=== PATIENT | female | born 1995 | race Caucasian/White ===

== ENCOUNTER 2016-04-22 15:02 | Emergency (ER) | payer OTHER ==
[2016-04-22] MEDS ORDERED: KETOROLAC 30 MG/ML VIAL (J1885) As Ordered ONE (16:23)
[2016-04-22] MEDS ORDERED: ONDANSETRON 4MG/2ML VIAL (J2405) As Ordered ONE (16:23)
[2016-04-22 16:37] LABS: BASO % 0.4 % (0.0-1.0); EOS # 0.1 K/mm3 (0.0-0.50); EOS % 1.8 % (0.0-3.0); LARGE UNSTAINED CELL # 0.2 K/mm3 (0.0-0.4); LARGE UNSTAINED CELL % 2.2 % (0.0-4.0); LYMPH # 1.5 K/mm3 (1.5-6.5); LYMPH % 19.8 % (24.0-44.0); MEAN CORPUSCULAR HEMOGLOBIN 29.5 pg (27.0-33.0); MEAN CORPUSCULAR HGB CONC 33.6 g/dl (32.0-36.5); MEAN CORPUSCULAR VOLUME 87.8 fl (80.0-96.0); MONO # 0.5 K/mm3 (0.0-0.8); MONO % 6.2 % (0.0-5.0); NEUTROPHILS # 5.4 K/mm3 (1.8-7.7); NEUTROPHILS % 69.7 % (36.0-66.0); PLATELET COUNT, AUTOMATED 218 k/mm3 (150-450); RED CELL DISTRIBUTION WIDTH 12.8 % (11.5-14.5); WHITE BLOOD COUNT 7.8 K/mm3 (4.0-10.0)
[2016-04-22 16:50] LABS: ALBUMIN/GLOBULIN RATIO 1.05 (1.00-1.93); ALKALINE PHOSPHATASE 82 U/L (45-117); ALT/SGPT 29 U/L (12-78); ANION GAP 9 MEQ/L (8-16); AST/SGOT 15 U/L (15-37); BILIRUBIN,DIRECT 0.2 MG/DL (0.0-0.2); BILIRUBIN,TOTAL 0.5 MG/DL (0.2-1.0); BLOOD UREA NITROGEN 9 MG/DL (7-18); CARBON DIOXIDE LEVEL 27 MEQ/L (21-32); CHLORIDE LEVEL 106 MEQ/L (98-107); CREATININE FOR GFR 0.92 MG/DL (0.55-1.02); GLOMERULAR FILTRATION RATE > 60.0 (>60); GLUCOSE, FASTING 82 MG/DL (70-105); POTASSIUM SERUM 3.6 MEQ/L (3.5-5.1); SODIUM LEVEL 142 MEQ/L (136-145); TOTAL PROTEIN 7.8 GM/DL (6.4-8.2)
[2016-04-22] MEDS ORDERED: MORPHINE 4 MG/ML 1ML SYRINGE As Ordered ONE (17:10)
[2016-04-22] MEDS ORDERED: ISOVUE-370 76% 100ML VIAL (Q9967) As Ordered ONE (17:13)
--- NOTE | 2016-04-22 18:39 | EDDOCDS ---
Physician Documentation [facility] Name: Renuka Bernard Age: 20 yrs Sex: Female : 1995 Arrival Date: 04/22/2016 Time: 15:02 Bed I2 / M2 Private MD: BRE Morton Disposition: 04/22/16 18:24 Discharged to Home/Self Care. Impression: Nausea and vomiting, Abdominal and pelvic pain - RLQ. - Condition is Stable. - Discharge Instructions: Viral Gastroenteritis. - Prescriptions for ZOFRAN ODT 4 mg - dissolve 1 tablet by ORAL route 4 times per day As needed do not chew, do not swallow whole; 10 tablet. - Medication Reconciliation, Work Release Form - 2 day form. - Follow up: Emergency Department; When: As needed. Follow up: BRE Morton; When: Call to arrange an appointment; Reason: Wound/Symptom Recheck, Recheck today's complaints, Worsening of conditions, Continuance of care. - Problem is an ongoing problem. - Symptoms have improved. Historical: - Allergies: No known drug Allergies; - Home Meds: 1. symbicort 2 puffs twice daily 2. BCP 1 tab nightly 3. Prozac 40 mg Oral cap 1 cap once daily - PMHx: Asthma; Anxiety; Depression; - PSHx: none; - Social history: Smoking status: Patient states was never smoker of tobacco. No barriers to communication noted, The patient speaks fluent [place]ankan. - Family history: Not pertinent. - : The pt / caregiver states he / she is not on anticoagulants. Home medication list is obtained from the patient. - Exposure Risk Screening:: None identified. BDR: 04/22 15:14 LMP 04/03/2016 kcs Vital Signs: 15:04 BP 142 / 54; Pulse 85; Resp 18; Temp 98.3; Pulse Ox 99% ; Weight 77.11 kg / 170 lbs; elp Height 5 ft. 5 in. (165.10 cm); Pain 7/10; 17:00 Pain 6/10; mcp 17:45 Pain 3/10; mcp 18:31 BP 113 / 68; Pulse 72; Resp 18; Temp 99.1(T); Pulse Ox 97% on R/A; Pain 2/10; mcp 15:04 Body Mass Index 28.29 (77.11 kg, 165.10 cm) elp MDM: 15:45 Urine Dip ordered. cc10 15:45 UCG by Nursing ordered. cc10 16:11 NS 0.9% 1000 ml IV at bolus once ordered. cc10 16:11 Ondansetron 4 mg IVP once ordered. cc10 16:11 ketorolac 30 mg IVP once ordered. cc10 16:11 IV Saline Lock ordered. cc10 16:11 Undress patient appropriately for examination ordered. cc10 16:13 Basic Metabolic Profile Ordered. EDMS 16:13 CBC with Diff Ordered. EDMS 16:13 Lipase Ordered. EDMS 16:13 Liver Profile Ordered. EDMS 16:13 NOTHING BY MOUTH+DIET ordered. EDMS 17:01 CBC with Diff Reviewed. cc10 17:01 Basic Metabolic Profile Reviewed. cc10 17:01 Lipase Reviewed. cc10 17:01 Liver Profile Reviewed. cc10 17:06 morphine 4 mg IVP once ordered. cc10 17:06 CT ABD & PELVIS: IV Contrast Only Ordered. EDMS Point of Care Testing: Urine : 15:59 hCG Reading: Negative; Control Reading: Positive; kcs Urine Dip: 15:59 pH: 5; ; Specific [place]: 1.020; Ketones: Moderate; Glucose: Negative; Protein: Trace; kcs Leukocytes: Negative; Nitrite: Negative ; Blood: Negative; Bilirubin: Small (+) ; Urobilinogen: Normal Ranges: Administered Medications: 16:28 Drug: NS 0.9% 1000 ml [sodium chloride 0.9 % intravenous solution] Route: IV; Rate: mcp bolus; Site: right antecubital; 18:32 Follow up: IV Status: Infusion discontinued; IV Intake: 700ml [facility] 16:28 Drug: Ondansetron 4 mg [ondansetron HCl 2 mg/mL intravenous solution (2 mL)] Route: mcp IVP; Site: right antecubital; 16:28 Drug: ketorolac 30 mg [ketorolac 30 mg/mL (1 mL) injection solution (1 mL)] Route: IVP; [facility] Site: right antecubital; 17:00 Follow up: Pain 6/10 Adult; Response: Pain is decreased [facility] 17:14 Drug: morphine 4 mg [morphine 4 mg/mL intravenous cartridge (1 mL)] Route: IVP; Site: mk4 right antecubital; 17:30 Follow up: Response: Pain is decreased mk4 17:45 Follow up: Pain 3/10 Adult; Response: Pain is decreased mcp 18:38 Follow up: Response: Pain is decreased mk4 Signatures: Dispatcher [employer] Janessa Haro, KEVIN RN [facility] Anna Driscoll RN RN mk4 Jasvir Caban, JOSIAHC PAMarieC cc10 Georgiana Johnson RN [facility] MTDD
--- NOTE | 2016-04-22 18:39 | EDDOCDS ---
Nurse's Notes [facility] Name: Renuka Bernard Age: 20 yrs Sex: Female : 1995 Arrival Date: 04/22/2016 Time: 15:02 Bed I2 / M2 Private MD: BRE Morton Diagnosis: Nausea and vomiting;Abdominal and pelvic pain-RLQ Presentation: 04/22 15:12 Presenting complaint: Patient states: she woke up yesterday with nausea - later had kcs abdominal pain - still has abdominal pain but has gotten worse in the last 1-2 hours. also vomited X2 today. Adult Sepsis Screening: The patient does not have new or worsening altered mentation. Patient's respiratory rate is less than 22. Systolic blood pressure is greater than 100. Patient has a qSOFA score of 0- Negative Sepsis Screen. Suicide/Homicide risk assessment- the patient denies having any suicidal and/or homicidal ideations and does not present with any other emotional, behavioral or mental health complaints. Status: The patient is a dependent. Transition of care: patient was not received from another setting of care. 15:12 Acuity: PROSPER Level 3 kcs 15:12 Method Of Arrival: Walkin/Carried/Asstd kcs Triage Assessment: 15:14 General: Appears comfortable, well developed, well nourished, well groomed, Behavior is kcs cooperative, pleasant. Pain: Location: abdomen Pain currently is 8 out of 10 on a pain scale. Pt Declines HIV testing. Neurological: Level of Consciousness is awake, alert. Respiratory: Airway is patent Respiratory effort is even, unlabored, Respiratory pattern is regular, symmetrical. Derm: Skin is intact, is healthy with good turgor, Skin is dry, Skin is normal. 18:38 GI: Reports. mk4 JEWEL STRIPPER: 15:14 LMP 04/03/2016 kcs Historical: - Allergies: No known drug Allergies; - Home Meds: 1. symbicort 2 puffs twice daily 2. BCP 1 tab nightly 3. Prozac 40 mg Oral cap 1 cap once daily - PMHx: Asthma; Anxiety; Depression; - PSHx: none; - Social history: Smoking status: Patient states was never smoker of tobacco. No barriers to communication noted, The patient speaks fluent [place]. - Family history: Not pertinent. - : The pt / caregiver states he / she is not on anticoagulants. Home medication list is obtained from the patient. - Exposure Risk Screening:: None identified. Screenin:20 Screening information is obtained from the patient. Fall risk: No risks identified. mcp Assistance ADL's: requires no assistance with activities of daily living. Abuse/DV Screen: The patient / caregiver reports he/she is: not in a situation that causes fear, pain or injury. Nutritional screening: No deficits noted. Advance Directives: There is no active DNR order. home support is adequate. Assessment: 16:20 General: Appears uncomfortable, Behavior is cooperative. Pain: Location: right lower mcp quadrant Pain currently is 7 out of 10 on a pain scale. Neurological: No deficits noted. Respiratory: Airway is patent Respiratory effort is even, unlabored. GI: Abdomen is non- distended Bowel sounds present X 4 quads. Abd is soft X 4 quads. Derm: Skin is pink, warm & dry. 17:00 General: Appears uncomfortable, pt reports an increase in abd pain with nausea provider mk4 aware and orders recvd. 18:16 General: Appears uncomfortable, pt states that he rpain has returned with nauseas, mk4 reported to PA. 18:37 General: Appears uncomfortable, Behavior is cooperative, pleasant, pt states she is mk4 still having some pain but it is better. Vital Signs: 15:04 BP 142 / 54; Pulse 85; Resp 18; Temp 98.3; Pulse Ox 99% ; Weight 77.11 kg; Height 5 ft. elp 5 in. (165.10 cm); Pain 7/10; 17:00 Pain 6/10; mcp 17:45 Pain 3/10; mcp 18:31 BP 113 / 68; Pulse 72; Resp 18; Temp 99.1(T); Pulse Ox 97% on R/A; Pain 2/10; mcp 15:04 Body Mass Index 28.29 (77.11 kg, 165.10 cm) [facility] Vitals: 15:04 Log In Time: April 22, 2016 at 15:02. [facility] ED Course: 15:04 Patient visited by Olivia Bowman PCA. [facility] 15:04 Selene [facility] [place] Private Physician. elp 15:04 Patient moved to Waiting elp 15:05 Patient visited by Patchen, Olivia, HAND ORNAMENT MAKER. elp 15:05 Patient moved to Pre RCE elp 15:13 Triage Initiated kcs 15:26 Patient moved to Triage 3 ct3 15:45 Patient visited by Darling Mckoy RN. ck1 16:07 Jasvir Caban [facility]-C [facility] cc10 16:07 Blair Laguerre MD is Attending Physician. cc10 16:07 Patient visited by Jasvir Caban PA-C. cc10 16:07 Patient visited by Jasvir Caban PA-C. cc10 16:11 Patient moved to I2 / M2 kcs 16:20 Basic Metabolic Profile Sent. mcp 16:20 CBC with Diff Sent. mcp 16:20 Lipase Sent. mcp 16:20 Liver Profile Sent. [facility] 16:21 Patient visited by Georgiana Johnson RN. [facility] 16:21 The patient / caregiver is instructed regarding the plan of care and ED course. Patient mcp has correct armband on for positive identification. Placed in gown. Bed in low position. Call light in reach. 16:21 Inserted saline lock: 20 gauge in right antecubital area and blood collected. The mcp patient tolerated the procedure well. Labs drawn. (by ED staff). Sent per order to lab. 17:00 No procedures done that require assistance. mk4 17:07 Patient visited by Anna Driscoll RN. mk4 17:[address] mk4 17:29 Patient moved to I2 / M2 mk4 17:46 Patient visited by Georgiana Johnson RN. [facility] 18:24 Patient visited by Anna Driscoll RN. [facility] 18:24 Selene [facility] is Referral Physician. cc10 18:32 Discontinued lock intact, bleeding controlled, pressure dressing applied, No mcp redness/swelling at site. 18:34 Patient visited by Georgiana Johnson RN. mcp Administered Medications: 16:28 Drug: NS 0.9% 1000 ml [sodium chloride 0.9 % intravenous solution] Route: IV; Rate: mcp bolus; Site: right antecubital; 18:32 Follow up: IV Status: Infusion discontinued; IV Intake: 700ml [facility] 16:28 Drug: Ondansetron 4 mg [ondansetron HCl 2 mg/mL intravenous solution (2 mL)] Route: mcp IVP; Site: right antecubital; 16:28 Drug: ketorolac 30 mg [ketorolac 30 mg/mL (1 mL) injection solution (1 mL)] Route: IVP; [facility] Site: right antecubital; 17:00 Follow up: Pain 6/10 Adult; Response: Pain is decreased [facility] 17:14 Drug: morphine 4 mg [morphine 4 mg/mL intravenous cartridge (1 mL)] Route: IVP; Site: mk4 right antecubital; 17:30 Follow up: Response: Pain is decreased mk4 17:45 Follow up: Pain 3/10 Adult; Response: Pain is decreased [facility] 18:38 Follow up: Response: Pain is decreased 4 Point of Care Testing: Urine : 15:59 hCG Reading: Negative; Control Reading: Positive; kcs Urine Dip: 15:59 pH: 5; ; Specific [place]: 1.020; Ketones: Moderate; Glucose: Negative; Protein: Trace; kcs Leukocytes: Negative; Nitrite: Negative ; Blood: Negative; Bilirubin: Small (+) ; Urobilinogen: Normal Ranges: Intake: 18:32 IV: 700.00ml; Total: 700.00ml. [facility] Order Results: Lab Order: Basic Metabolic Profile; SPEC'M 04/22/16 16:18 Test: GLUCOSE, FASTING; Value: 82; Range: 70-105; Units: MG/DL; Status: F Test: BLOOD UREA NITROGEN; Value: 9; Range: 7-18; Units: MG/DL; Status: F Test: CREATININE FOR GFR; Value: 0.92; Range: 0.55-1.02; Units: MG/DL; Status: F Test: GLOMERULAR FILTRATION RATE; Value: > 60.0; Range: >60; Status: F Test: SODIUM LEVEL; Value: 142; Range: 136-145; Units: MEQ/L; Status: F Test: POTASSIUM SERUM; Value: 3.6; Range: 3.5-5.1; Units: MEQ/L; Status: F Test: CHLORIDE LEVEL; Value: 106; Range: 98-107; Units: MEQ/L; Status: F Test: CARBON DIOXIDE LEVEL; Value: 27; Range: 21-32; Units: MEQ/L; Status: F Test: ANION GAP; Value: 9; Range: 8-16; Units: MEQ/L; Status: F Test: CALCIUM LEVEL; Value: 9.0; Range: 8.5-10.1; Units: MG/DL; Status: F Test Note: ; Units are mL/min/1.73 m2 Chronic Kidney Disease Staging per NKF: Stage I & II GFR >=60 Normal to Mildly Decreased Stage III GFR 30-59 Moderately Decreased Stage IV GFR 15-29 Severely Decreased Stage V GFR <15 Very Little GFR Left ESRD GFR <15 on TRAINING PROGRAM MANAGER Lab Order: CBC with Diff; SPEC'M 04/22/16 16:18 Test: WHITE BLOOD COUNT; Value: 7.8; Range: 4.0-10.0; Units: K/mm3; Status: F Test: RED BLOOD COUNT; Value: 4.97; Range: 4.00-5.40; Units: M/mm3; Status: F Test: HEMOGLOBIN; Value: 14.7; Range: 12.0-16.0; Units: g/dl; Status: F Test: HEMATOCRIT; Value: 43.7; Range: 36.0-47.0; Units: %; Status: F Test: MEAN CORPUSCULAR VOLUME; Value: 87.8; Range: 80.0-96.0; Units: fl; Status: F Test: MEAN CORPUSCULAR HEMOGLOBIN; Value: 29.5; Range: 27.0-33.0; Units: pg; Status: F Test: MEAN CORPUSCULAR HGB CONC; Value: 33.6; Range: 32.0-36.5; Units: g/dl; Status: F Test: RED CELL DISTRIBUTION WIDTH; Value: 12.8; Range: 11.5-14.5; Units: %; Status: F Test: PLATELET COUNT, AUTOMATED; Value: 218; Range: 150-450; Units: k/mm3; Status: F Test: NEUTROPHILS %; Value: 69.7; Range: 36.0-66.0; Abnormal: Above high normal; Units: %; Status: F Test: LYMPH %; Value: 19.8; Range: 24.0-44.0; Abnormal: Below low normal; Units: %; Status: F Test: MONO %; Value: 6.2; Range: 0.0-5.0; Abnormal: Above high normal; Units: %; Status: F Test: EOS %; Value: 1.8; Range: 0.0-3.0; Units: %; Status: F Test: BASO %; Value: 0.4; Range: 0.0-1.0; Units: %; Status: F Test: LARGE UNSTAINED CELL %; Value: 2.2; Range: 0.0-4.0; Units: %; Status: F Test: NEUTROPHILS #; Value: 5.4; Range: 1.8-7.7; Units: K/mm3; Status: F Test: LYMPH #; Value: 1.5; Range: 1.5-6.5; Units: K/mm3; Status: F Test: MONO #; Value: 0.5; Range: 0.0-0.8; Units: K/mm3; Status: F Test: EOS #; Value: 0.1; Range: 0.0-0.50; Units: K/mm3; Status: F Test: BASO #; Value: 0.0; Range: 0.0-0.2; Units: K/mm3; Status: F Test: LARGE UNSTAINED CELL #; Value: 0.2; Range: 0.0-0.4; Units: K/mm3; Status: F Lab Order: Lipase; [facility] 04/22/16 16:18 Test: LIPASE; Value: 145; Range: 73-393; Units: U/L; Status: F Lab Order: Liver Profile; [facility] 04/22/16 16:18 Test: AST/SGOT; Value: 15; Range: 15-37; Units: U/L; Status: F Test: ALT/SGPT; Value: 29; Range: 12-78; Units: U/L; Status: F Test: ALKALINE PHOSPHATASE; Value: 82; Range: 45-117; Units: U/L; Status: F Test: BILIRUBIN,TOTAL; Value: 0.5; Range: 0.2-1.0; Units: MG/DL; Status: F Test: BILIRUBIN,DIRECT; Value: 0.2; Range: 0.0-0.2; Units: MG/DL; Status: F Test: TOTAL PROTEIN; Value: 7.8; Range: 6.4-8.2; Units: GM/DL; Status: F Test: ALBUMIN; Value: 4.0; Range: 3.2-5.2; Units: GM/DL; Status: F Test: ALBUMIN/GLOBULIN RATIO; Value: 1.05; Range: 1.00-1.93; Status: F Outcome: 18:24 Discharge ordered by Provider. [facility] 18:37 Discharge Assessment: Patient awake, alert and oriented x 3. No cognitive and/or mk4 functional deficits noted. Patient verbalized understanding of disposition instructions. Patient awake and alert. Discharge Assessment: patient administered narcotics - no. The following High Risk Discharge criteria are identified: None. Condition: good Condition: stable. No special radiology studies were completed. Property sent home with patient. 18:38 Patient left the ED. 4 Signatures: Janessa Sosa, RN RN Georgiana Snowden RN Darling Gill mcpRN RN ck1 Jane Cruz, HAND ORNAMENT MAKER HAND ORNAMENT MAKER ct3 Olivia Bowman, HAND ORNAMENT MAKER HAND ORNAMENT MAKER deannp Anna Driscoll RN RN mk4 Jasvir Caban, PA-C PA-C cc10 CARMELLA
--- NOTE | 2016-04-22 18:49 | REP ---
CT ABDOMEN AND PELVIS WITH CONTRAST: 04/22/2016: No comparison study. Technique: Bolus of 100 mL of Isovue-370 with scanning through the abdomen pelvis and both coronal and sagittal reconstructions provided. No oral contrast given. Findings: CT abdomen and lung bases clear. Heart is not enlarged and no pericardial thickening or effusion. No hiatal hernia. The liver, spleen, gallbladder, adrenal glands, pancreas, bilateral kidneys, stomach and the great vessels were unremarkable. There is no periaortic other retroperitoneal pathologic sized lymphadenopathy. Colon in the abdominal cavity shows stool and gas in the right and transverse colon to the midline. Transverse colon, splenic flexure and left colon are collapsed. There is questionable wall thickening but no pericolonic edema or infiltration of the fat around the colon. It showed no bony abnormality. There is a disc bulge at the L5-S1 level not causing gross evidence of spinal stenosis. The distal left colon and sigmoid are collapsed without inflammatory change to suggest definite colitis. There is stool in the rectal vault without wall thickening. Appendix is seen without inflammatory change or stone. No periappendiceal fluid or edema. There is no appendicolith. The appendix is retrocecal extending upward to near the level of the iliac crest behind the cecum. Uterus is anteverted tilted towards the right. The bilateral ovaries were intact. There is no pelvic free fluid or adnexal mass. No ventral or inguinal hernia nor inguinal adenopathy. Impression: 1. Appendix is retrocecal but there is no CT evidence for appendicitis, appendicolith, or pericecal inflammatory change. 2. The distal transverse colon, splenic flexure, and left colon to the sigmoid show collapse of the colon and questionable wall thickening but no pericolonic inflammatory change that would clearly define colitis. No fluid in the peroneal gutters and no free air or generalized ascites. Stool in the rectosigmoid vault as well. Small bowel loops intact. 3. Solid organs in the upper abdomen as well as the stomach and gallbladder were unremarkable. No ventral or inguinal hernia. Signed by Aleksandar Azul MD 04/22/2016 07:57 P
--- NOTE | 2016-04-24 19:39 | EDDOCDS ---
Nurse's Notes [facility] Name: Renuka Bernard Age: 20 yrs Sex: Female : 1995 Arrival Date: 04/22/2016 Time: 15:02 Bed I2 / M2 Private MD: BRE Morton Diagnosis: Nausea and vomiting;Abdominal and pelvic pain-RLQ Presentation: 04/22 15:12 Presenting complaint: Patient states: she woke up yesterday with nausea - later had kcs abdominal pain - still has abdominal pain but has gotten worse in the last 1-2 hours. also vomited X2 today. Adult Sepsis Screening: The patient does not have new or worsening altered mentation. Patient's respiratory rate is less than 22. Systolic blood pressure is greater than 100. Patient has a qSOFA score of 0- Negative Sepsis Screen. Suicide/Homicide risk assessment- the patient denies having any suicidal and/or homicidal ideations and does not present with any other emotional, behavioral or mental health complaints. Status: The patient is a dependent. Transition of care: patient was not received from another setting of care. 15:12 Acuity: PROSPER Level 3 kcs 15:12 Method Of Arrival: Walkin/Carried/Asstd kcs Triage Assessment: 15:14 General: Appears comfortable, well developed, well nourished, well groomed, Behavior is kcs cooperative, pleasant. Pain: Location: abdomen Pain currently is 8 out of 10 on a pain scale. Pt Declines HIV testing. Neurological: Level of Consciousness is awake, alert. Respiratory: Airway is patent Respiratory effort is even, unlabored, Respiratory pattern is regular, symmetrical. Derm: Skin is intact, is healthy with good turgor, Skin is dry, Skin is normal. 18:38 GI: Reports. 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 symbicort 2 puffs twice daily 2. BCP 1 tab nightly 3. Prozac 40 mg Oral cap 1 cap once daily - PMHx: Asthma; Anxiety; Depression; - PSHx: none; - Social history: Smoking status: Patient states was never smoker of tobacco. No barriers to communication noted, The patient speaks fluent Sammarinese. - Family history: Not pertinent. - : The pt / caregiver states he / she is not on anticoagulants. Home medication list is obtained from the patient. - Exposure Risk Screening:: None identified. Screenin:20 Screening information is obtained from the patient. Fall risk: No risks identified. mcp Assistance ADL's: requires no assistance with activities of daily living. Abuse/DV Screen: The patient / caregiver reports he/she is: not in a situation that causes fear, pain or injury. Nutritional screening: No deficits noted. Advance Directives: There is no active DNR order. home support is adequate. Assessment: 16:20 General: Appears uncomfortable, Behavior is cooperative. Pain: Location: right lower mcp quadrant Pain currently is 7 out of 10 on a pain scale. Neurological: No deficits noted. Respiratory: Airway is patent Respiratory effort is even, unlabored. GI: Abdomen is non- distended Bowel sounds present X 4 quads. Abd is soft X 4 quads. Derm: Skin is pink, warm & dry. 17:00 General: Appears uncomfortable, pt reports an increase in abd pain with nausea provider mk4 aware and orders recvd. 18:16 General: Appears uncomfortable, pt states that he rpain has returned with nauseas, mk4 reported to PA. 18:37 General: Appears uncomfortable, Behavior is cooperative, pleasant, pt states she is mk4 still having some pain but it is better. Vital Signs: 15:04 BP 142 / 54; Pulse 85; Resp 18; Temp 98.3; Pulse Ox 99% ; Weight 77.11 kg; Height 5 ft. elp 5 in. (165.10 cm); Pain 7/10; 17:00 Pain 6/10; mcp 17:45 Pain 3/10; mcp 18:31 BP 113 / 68; Pulse 72; Resp 18; Temp 99.1(T); Pulse Ox 97% on R/A; Pain 2/10; mcp 15:04 Body Mass Index 28.29 (77.11 kg, 165.10 cm) [facility] Vitals: 15:04 Log In Time: April 22, 2016 at 15:02. [facility] ED Course: 15:04 Patient visited by Olivia Bowman PCA. [facility] 15:04 Selene [facility] is Private Physician. elp 15:04 Patient moved to Waiting elp 15:05 Patient visited by Patchen, Olivia, INSTRUCTOR TAP DANCING. elp 15:05 Patient moved to Pre RCE elp 15:13 Triage Initiated kcs 15:26 Patient moved to Triage 3 ct3 15:45 Patient visited by Darling Mckoy,KEVIN. ck1 16:07 [facility] cc10 16:07 Blair Laguerre MD is Attending Physician. cc10 16:07 Patient visited by Jasvir Caban PA-C. cc10 16:07 Patient visited by Jasvir Caban PA-C. cc10 16:11 Patient moved to I2 / M2 kcs 16:20 Basic Metabolic Profile Sent. mcp 16:20 CBC with Diff Sent. mcp 16:20 Lipase Sent. mcp 16:20 Liver Profile Sent. [facility] 16:21 Patient visited by Georgiana Johnson RN. [facility] 16:21 The patient / caregiver is instructed regarding the plan of care and ED course. Patient mcp has correct armband on for positive identification. Placed in gown. Bed in low position. Call light in reach. 16:21 Inserted saline lock: 20 gauge in right antecubital area and blood collected. The mcp patient tolerated the procedure well. Labs drawn. (by ED staff). Sent per order to lab. 17:00 No procedures done that require assistance. mk4 17:07 Patient visited by Anna Driscoll RN. mk4 17:[address] mk4 17:29 Patient moved to I2 / M2 mk4 17:46 Patient visited by Georgiana Johnson RN. [facility] 18:24 Patient visited by Anna Driscoll RN. mk4 18:24 Selene [facility] is Referral Physician. cc10 18:32 Discontinued lock intact, bleeding controlled, pressure dressing applied, No mcp redness/swelling at site. 18:34 Patient visited by Georgiana Johnson RN. [facility] 19:18 CT ABD & PELVIS: IV Contrast Only Returned. EDMS 19:27 [facility] Payment Agreement was scanned into [employer] and attached to record. gjb 04/23 13:44 T-Sheet-- Draft Copy was scanned into [employer] and attached to record. gb Administered Medications: 04/22 16:28 Drug: NS 0.9% 1000 ml [sodium chloride 0.9 % intravenous solution] Route: IV; Rate: mcp bolus; Site: right antecubital; 18:32 Follow up: IV Status: Infusion discontinued; IV Intake: 700ml [facility] 16:28 Drug: Ondansetron 4 mg [ondansetron HCl 2 mg/mL intravenous solution (2 mL)] Route: mcp IVP; Site: right antecubital; 16:28 Drug: ketorolac 30 mg [ketorolac 30 mg/mL (1 mL) injection solution (1 mL)] Route: IVP; [facility] Site: right antecubital; 17:00 Follow up: Pain 6/10 Adult; Response: Pain is decreased [facility] 17:14 Drug: morphine 4 mg [morphine 4 mg/mL intravenous cartridge (1 mL)] Route: IVP; Site: mk4 right antecubital; 17:30 Follow up: Response: Pain is decreased 4 17:45 Follow up: Pain 3/10 Adult; Response: Pain is decreased [facility] 18:38 Follow up: Response: Pain is decreased 4 Point of Care Testing: Urine : 15:59 hCG Reading: Negative; Control Reading: Positive; kcs Urine Dip: 15:59 pH: 5; ; Specific [place]: 1.020; Ketones: Moderate; Glucose: Negative; Protein: Trace; kcs Leukocytes: Negative; Nitrite: Negative ; Blood: Negative; Bilirubin: Small (+) ; Urobilinogen: Normal Ranges: Intake: 18:32 IV: 700.00ml; Total: 700.00ml. [facility] Order Results: Lab Order: Basic Metabolic Profile; SPEC'M 04/22/16 16:18 Test: GLUCOSE, FASTING; Value: 82; Range: 70-105; Units: MG/DL; Status: F Test: BLOOD UREA NITROGEN; Value: 9; Range: 7-18; Units: MG/DL; Status: F Test: CREATININE FOR GFR; Value: 0.92; Range: 0.55-1.02; Units: MG/DL; Status: F Test: GLOMERULAR FILTRATION RATE; Value: > 60.0; Range: >60; Status: F Test: SODIUM LEVEL; Value: 142; Range: 136-145; Units: MEQ/L; Status: F Test: POTASSIUM SERUM; Value: 3.6; Range: 3.5-5.1; Units: MEQ/L; Status: F Test: CHLORIDE LEVEL; Value: 106; Range: 98-107; Units: MEQ/L; Status: F Test: CARBON DIOXIDE LEVEL; Value: 27; Range: 21-32; Units: MEQ/L; Status: F Test: ANION GAP; Value: 9; Range: 8-16; Units: MEQ/L; Status: F Test: CALCIUM LEVEL; Value: 9.0; Range: 8.5-10.1; Units: MG/DL; Status: F Test Note: ; Units are mL/min/1.73 m2 Chronic Kidney Disease Staging per NKF: Stage I & II GFR >=60 Normal to Mildly Decreased Stage III GFR 30-59 Moderately Decreased Stage IV GFR 15-29 Severely Decreased Stage V GFR <15 Very Little GFR Left ESRD GFR <15 on B[facility]ING MOLDER Lab Order: CBC with Diff; SPEC'M 04/22/16 16:18 Test: WHITE BLOOD COUNT; Value: 7.8; Range: 4.0-10.0; Units: K/mm3; Status: F Test: RED BLOOD COUNT; Value: 4.97; Range: 4.00-5.40; Units: M/mm3; Status: F Test: HEMOGLOBIN; Value: 14.7; Range: 12.0-16.0; Units: g/dl; Status: F Test: HEMATOCRIT; Value: 43.7; Range: 36.0-47.0; Units: %; Status: F Test: MEAN CORPUSCULAR VOLUME; Value: 87.8; Range: 80.0-96.0; Units: fl; Status: F Test: MEAN CORPUSCULAR HEMOGLOBIN; Value: 29.5; Range: 27.0-33.0; Units: pg; Status: F Test: MEAN CORPUSCULAR HGB CONC; Value: 33.6; Range: 32.0-36.5; Units: g/dl; Status: F Test: RED CELL DISTRIBUTION WIDTH; Value: 12.8; Range: 11.5-14.5; Units: %; Status: F Test: PLATELET COUNT, AUTOMATED; Value: 218; Range: 150-450; Units: k/mm3; Status: F Test: NEUTROPHILS %; Value: 69.7; Range: 36.0-66.0; Abnormal: Above high normal; Units: %; Status: F Test: LYMPH %; Value: 19.8; Range: 24.0-44.0; Abnormal: Below low normal; Units: %; Status: F Test: MONO %; Value: 6.2; Range: 0.0-5.0; Abnormal: Above high normal; Units: %; Status: F Test: EOS %; Value: 1.8; Range: 0.0-3.0; Units: %; Status: F Test: BASO %; Value: 0.4; Range: 0.0-1.0; Units: %; Status: F Test: LARGE UNSTAINED CELL %; Value: 2.2; Range: 0.0-4.0; Units: %; Status: F Test: NEUTROPHILS #; Value: 5.4; Range: 1.8-7.7; Units: K/mm3; Status: F Test: LYMPH #; Value: 1.5; Range: 1.5-6.5; Units: K/mm3; Status: F Test: MONO #; Value: 0.5; Range: 0.0-0.8; Units: K/mm3; Status: F Test: EOS #; Value: 0.1; Range: 0.0-0.50; Units: K/mm3; Status: F Test: BASO #; Value: 0.0; Range: 0.0-0.2; Units: K/mm3; Status: F Test: LARGE UNSTAINED CELL #; Value: 0.2; Range: 0.0-0.4; Units: K/mm3; Status: F Lab Order: Lipase; [facility] 04/22/16 16:18 Test: LIPASE; Value: 145; Range: 73-393; Units: U/L; Status: F Lab Order: Liver Profile; [facility] 04/22/16 16:18 Test: AST/SGOT; Value: 15; Range: 15-37; Units: U/L; Status: F Test: ALT/SGPT; Value: 29; Range: 12-78; Units: U/L; Status: F Test: ALKALINE PHOSPHATASE; Value: 82; Range: 45-117; Units: U/L; Status: F Test: BILIRUBIN,TOTAL; Value: 0.5; Range: 0.2-1.0; Units: MG/DL; Status: F Test: BILIRUBIN,DIRECT; Value: 0.2; Range: 0.0-0.2; Units: MG/DL; Status: F Test: TOTAL PROTEIN; Value: 7.8; Range: 6.4-8.2; Units: GM/DL; Status: F Test: ALBUMIN; Value: 4.0; Range: 3.2-5.2; Units: GM/DL; Status: F Test: ALBUMIN/GLOBULIN RATIO; Value: 1.05; Range: 1.00-1.93; Status: F Radiology Order: CT ABD & PELVIS: IV Contrast Only Test: CT ABD & PELVIS: IV Contrast Only REASON FOR EXAMINATION: Appendicitis; CT ABDOMEN AND PELVIS WITH CONTRAST: 04/22/2016:; ; No comparison study.; ; Technique: Bolus of 100 mL of Isovue-370 with scanning through the abdomen; pelvis and both coronal and sagittal reconstructions provided. No oral contrast; given.; ; Findings: CT abdomen and lung bases clear. Heart is not enlarged and no; pericardial thickening or effusion. No hiatal hernia. The liver, spleen,; gallbladder, adrenal glands, pancreas, bilateral kidneys, stomach and the great; vessels were unremarkable. There is no periaortic other retroperitoneal; pathologic sized lymphadenopathy. Colon in the abdominal cavity shows stool and; gas in the right and transverse colon to the midline. Transverse colon, splenic; flexure and left colon are collapsed. There is questionable wall thickening but; no pericolonic edema or infiltration of the fat around the colon. It showed no; bony abnormality. There is a disc bulge at the L5-S1 level not causing gross; evidence of spinal stenosis. The distal left colon and sigmoid are collapsed; without inflammatory change to suggest definite colitis. There is stool in the; rectal vault without wall thickening. Appendix is seen without inflammatory; change or stone. No periappendiceal fluid or edema. There is no appendicolith.; The appendix is retrocecal extending upward to near the level of the iliac crest; behind the cecum.; ; Uterus is anteverted tilted towards the right. The bilateral ovaries were; intact. There is no pelvic free fluid or adnexal mass.; ; No ventral or inguinal hernia nor inguinal adenopathy.; ; Impression:; ; 1. Appendix is retrocecal but there is no CT evidence for appendicitis,; appendicolith, or pericecal inflammatory change.; ; 2. The distal transverse colon, splenic flexure, and left colon to the sigmoid; show collapse of the colon and questionable wall thickening but no pericolonic; inflammatory change that would clearly define colitis. No fluid in the peroneal; gutters and no free air or generalized ascites. Stool in the rectosigmoid vault; as well. Small bowel loops intact.; ; 3. Solid organs in the upper abdomen as well as the stomach and gallbladder were; unremarkable. No ventral or inguinal hernia.; ; ; Signed by; Aleksandar Azul MD 04/22/2016 07:57 P; Outcome: 18:24 Discharge ordered by Provider. cc10 18:37 Discharge Assessment: Patient awake, alert and oriented x 3. No cognitive and/or mk4 functional deficits noted. Patient verbalized understanding of disposition instructions. Patient awake and alert. Discharge Assessment: patient administered narcotics - no. The following High Risk Discharge criteria are identified: None. Condition: good Condition: stable. No special radiology studies were completed. Property sent home with patient. 18:38 Patient left the ED. mk4 Signatures: Dispatcher [employer] EDMS Janessa Sosa RN RN Georgiana Snowden RN RN mcp Barnhardt, Gloria, Reg Reg Darling HollinsRN RN ck1 Jane Cruz, INSTRUCTOR TAP DANCING INSTRUCTOR TAP DANCING ct3 Olivia Bowman, INSTRUCTOR TAP DANCING INSTRUCTOR TAP DANCING elp Anna Driscoll RN RN mk4 Jasvir Caban, PA-C PA-C cc10 Marga Muir Chart Complete MTDD
--- NOTE | 2016-04-24 19:39 | EDDOCDS ---
Physician Documentation [facility] Name: Renuka Bernard Age: 20 yrs Sex: Female : 1995 Arrival Date: 04/22/2016 Time: 15:02 Bed I2 / M2 Private MD: BRE Morton Disposition: 04/22/16 18:24 Discharged to Home/Self Care. Impression: Nausea and vomiting, Abdominal and pelvic pain - RLQ. - Condition is Stable. - Discharge Instructions: Viral Gastroenteritis. - Prescriptions for ZOFRAN ODT 4 mg - dissolve 1 tablet by ORAL route 4 times per day As needed do not chew, do not swallow whole; 10 tablet. - Medication Reconciliation, Work Release Form - 2 day form. - Follow up: Emergency Department; When: As needed. Follow up: BRE Morton; When: Call to arrange an appointment; Reason: Wound/Symptom Recheck, Recheck today's complaints, Worsening of conditions, Continuance of care. - Problem is an ongoing problem. - Symptoms have improved. Historical: - Allergies: No known drug Allergies; - Home Meds: 1. symbicort 2 puffs twice daily 2. BCP 1 tab nightly 3. Prozac 40 mg Oral cap 1 cap once daily - PMHx: Asthma; Anxiety; Depression; - PSHx: none; - Social history: Smoking status: Patient states was never smoker of tobacco. No barriers to communication noted, The patient speaks fluent [place]. - Family history: Not pertinent. - : The pt / caregiver states he / she is not on anticoagulants. Home medication list is obtained from the patient. - Exposure Risk Screening:: None identified. 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 5 in. (165.10 cm); Pain 7/10; 17:00 Pain 6/10; mcp 17:45 Pain 3/10; mcp 18:31 BP 113 / 68; Pulse 72; Resp 18; Temp 99.1(T); Pulse Ox 97% on R/A; Pain 2/10; mcp 15:04 Body Mass Index 28.29 (77.11 kg, 165.10 cm) elp MDM: 15:45 Urine Dip ordered. cc10 15:45 UCG by Nursing ordered. cc10 16:11 NS 0.9% 1000 ml IV at bolus once ordered. cc10 16:11 Ondansetron 4 mg IVP once ordered. cc10 16:11 ketorolac 30 mg IVP once ordered. cc10 16:11 IV Saline Lock ordered. cc10 16:11 Undress patient appropriately for examination ordered. cc10 16:13 Basic Metabolic Profile Ordered. EDMS 16:13 CBC with Diff Ordered. EDMS 16:13 Lipase Ordered. EDMS 16:13 Liver Profile Ordered. EDMS 16:13 NOTHING BY MOUTH+DIET ordered. EDMS 17:01 CBC with Diff Reviewed. cc10 17:01 Basic Metabolic Profile Reviewed. cc10 17:01 Lipase Reviewed. cc10 17:01 Liver Profile Reviewed. cc10 17:06 morphine 4 mg IVP once ordered. cc10 17:06 CT ABD & PELVIS: IV Contrast Only Ordered. [facility] 19:27 [facility] Payment Agreement was scanned into [employer] and attached to record. [facility] 19:27 Financial registration complete. [facility] 04/23 13:44 T-Sheet-- Draft Copy was scanned into [employer] and attached to record. Point of Care Testing: Urine : 04/22 15:59 hCG Reading: Negative; Control Reading: Positive; kcs Urine Dip: 15:59 pH: 5; ; Specific [place]: 1.020; Ketones: Moderate; Glucose: Negative; Protein: Trace; kcs Leukocytes: Negative; Nitrite: Negative ; Blood: Negative; Bilirubin: Small (+) ; Urobilinogen: Normal Ranges: Administered Medications: 16:28 Drug: NS 0.9% 1000 ml [sodium chloride 0.9 % intravenous solution] Route: IV; Rate: mcp bolus; Site: right antecubital; 18:32 Follow up: IV Status: Infusion discontinued; IV Intake: 700ml mcp 16:28 Drug: Ondansetron 4 mg [ondansetron HCl 2 mg/mL intravenous solution (2 mL)] Route: mcp IVP; Site: right antecubital; 16:28 Drug: ketorolac 30 mg [ketorolac 30 mg/mL (1 mL) injection solution (1 mL)] Route: IVP; mcp Site: right antecubital; 17:00 Follow up: Pain 6/10 Adult; Response: Pain is decreased mcp 17:14 Drug: morphine 4 mg [morphine 4 mg/mL intravenous cartridge (1 mL)] Route: IVP; Site: mk4 right antecubital; 17:30 Follow up: Response: Pain is decreased mk4 17:45 Follow up: Pain 3/10 Adult; Response: Pain is decreased mcp 18:38 Follow up: Response: Pain is decreased mk4 Signatures: Dispatcher [employer] EDJanessa Lees RN RN Candy Hope, Reg Reg gb Anna Driscoll RN RN mk4 Jasvir Caban PA-C PA-C cc10 Marga Muir Mary RN [facility] The chart was reviewed and I authenticate all verbal orders and agree with the evaluation and treatment provided.Attachments: 19:27 [facility] Payment Agreement gjb 04/23 13:44 T-Sheet-- Draft Copy Chart Complete MTDD
--- NOTE | 2016-04-24 19:39 | EDDOCDS ---
Physician Documentation [facility] Name: Renuka Bernard Age: 20 yrs Sex: Female : 1995 Arrival Date: 04/22/2016 Time: 15:02 Bed I2 / M2 Private MD: BRE Morton Disposition: 04/22/16 18:24 Discharged to Home/Self Care. Impression: Nausea and vomiting, Abdominal and pelvic pain - RLQ. - Condition is Stable. - Discharge Instructions: Viral Gastroenteritis. - Prescriptions for ZOFRAN ODT 4 mg - dissolve 1 tablet by ORAL route 4 times per day As needed do not chew, do not swallow whole; 10 tablet. - Medication Reconciliation, Work Release Form - 2 day form. - Follow up: Emergency Department; When: As needed. Follow up: BRE Morton; When: Call to arrange an appointment; Reason: Wound/Symptom Recheck, Recheck today's complaints, Worsening of conditions, Continuance of care. - Problem is an ongoing problem. - Symptoms have improved. Historical: - Allergies: No known drug Allergies; - Home Meds: 1. symbicort 2 puffs twice daily 2. BCP 1 tab nightly 3. Prozac 40 mg Oral cap 1 cap once daily - PMHx: Asthma; Anxiety; Depression; - PSHx: none; - Social history: Smoking status: Patient states was never smoker of tobacco. No barriers to communication noted, The patient speaks fluent [place]. - Family history: Not pertinent. - : The pt / caregiver states he / she is not on anticoagulants. Home medication list is obtained from the patient. - Exposure Risk Screening:: None identified. 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 5 in. (165.10 cm); Pain 7/10; 17:00 Pain 6/10; mcp 17:45 Pain 3/10; mcp 18:31 BP 113 / 68; Pulse 72; Resp 18; Temp 99.1(T); Pulse Ox 97% on R/A; Pain 2/10; mcp 15:04 Body Mass Index 28.29 (77.11 kg, 165.10 cm) elp MDM: 15:45 Urine Dip ordered. cc10 15:45 UCG by Nursing ordered. cc10 16:11 NS 0.9% 1000 ml IV at bolus once ordered. cc10 16:11 Ondansetron 4 mg IVP once ordered. cc10 16:11 ketorolac 30 mg IVP once ordered. cc10 16:11 IV Saline Lock ordered. cc10 16:11 Undress patient appropriately for examination ordered. cc10 16:13 Basic Metabolic Profile Ordered. EDMS 16:13 CBC with Diff Ordered. EDMS 16:13 Lipase Ordered. EDMS 16:13 Liver Profile Ordered. EDMS 16:13 NOTHING BY MOUTH+DIET ordered. EDMS 17:01 CBC with Diff Reviewed. cc10 17:01 Basic Metabolic Profile Reviewed. cc10 17:01 Lipase Reviewed. cc10 17:01 Liver Profile Reviewed. cc10 17:06 morphine 4 mg IVP once ordered. cc10 17:06 CT ABD & PELVIS: IV Contrast Only Ordered. [facility] 19:27 [facility] Payment Agreement was scanned into [employer] and attached to record. [facility] 19:27 Financial registration complete. [facility] 04/23 13:44 T-Sheet-- Draft Copy was scanned into [employer] and attached to record. Point of Care Testing: Urine : 04/22 15:59 hCG Reading: Negative; Control Reading: Positive; kcs Urine Dip: 15:59 pH: 5; ; Specific [place]: 1.020; Ketones: Moderate; Glucose: Negative; Protein: Trace; kcs Leukocytes: Negative; Nitrite: Negative ; Blood: Negative; Bilirubin: Small (+) ; Urobilinogen: Normal Ranges: Administered Medications: 16:28 Drug: NS 0.9% 1000 ml [sodium chloride 0.9 % intravenous solution] Route: IV; Rate: mcp bolus; Site: right antecubital; 18:32 Follow up: IV Status: Infusion discontinued; IV Intake: 700ml mcp 16:28 Drug: Ondansetron 4 mg [ondansetron HCl 2 mg/mL intravenous solution (2 mL)] Route: mcp IVP; Site: right antecubital; 16:28 Drug: ketorolac 30 mg [ketorolac 30 mg/mL (1 mL) injection solution (1 mL)] Route: IVP; mcp Site: right antecubital; 17:00 Follow up: Pain 6/10 Adult; Response: Pain is decreased mcp 17:14 Drug: morphine 4 mg [morphine 4 mg/mL intravenous cartridge (1 mL)] Route: IVP; Site: mk4 right antecubital; 17:30 Follow up: Response: Pain is decreased mk4 17:45 Follow up: Pain 3/10 Adult; Response: Pain is decreased mcp 18:38 Follow up: Response: Pain is decreased mk4 Signatures: Dispatcher [employer] EDJanessa Lees RN RN Candy Hope, Reg Reg gb Anna Driscoll RN RN mk4 Jasvir Caban PA-C PA-C cc10 Marga Muir Mary RN [facility] The chart was reviewed and I authenticate all verbal orders and agree with the evaluation and treatment provided.Attachments: 19:27 [facility] Payment Agreement gjb 04/23 13:44 T-Sheet-- Draft Copy Chart Complete MTDD
== END 2016-04-22 18:38 | disposition home or self-care (01) ==
LOC: M ED 15:02
DX: R11.2 Nausea with vomiting, unspecified (principal); R10.31 Right lower quadrant pain; J45.909 Unspecified asthma, uncomplicated; F41.9 Anxiety disorder, unspecified; F32.9 Major depressive disorder, single episode, unspecified; Z79.899 Other long term (current) drug therapy; Z79.3 Long term (current) use of hormonal contraceptives; Z79.51 Long term (current) use of inhaled steroids
CPT/HCPCS: 36415; 74177; 80048; 80076; 81025; 83690; 85025; 96361; 96374; 96375; 99284; J1885; J2405; Q9967

== ENCOUNTER 2016-04-23 10:10 | Emergency (ER) | payer OTHER ==
[2016-04-23] MEDS ORDERED: METOCLOPRAMIDE INJ 10MG/2ML VIAL (J2765) As Ordered ONE (11:56)
[2016-04-23] MEDS ORDERED: MORPHINE 2 MG/ML 1ML SYRINGE As Ordered ONE (11:56)
[2016-04-23 12:11] LABS: BASO % 0.4 % (0.0-1.0); EOS # 0.1 K/mm3 (0.0-0.50); EOS % 2.7 % (0.0-3.0); LARGE UNSTAINED CELL # 0.1 K/mm3 (0.0-0.4); LARGE UNSTAINED CELL % 2.2 % (0.0-4.0); LYMPH # 1.3 K/mm3 (1.5-6.5); LYMPH % 25.9 % (24.0-44.0); MEAN CORPUSCULAR HEMOGLOBIN 29.5 pg (27.0-33.0); MEAN CORPUSCULAR HGB CONC 33.4 g/dl (32.0-36.5); MEAN CORPUSCULAR VOLUME 88.3 fl (80.0-96.0); MONO # 0.4 K/mm3 (0.0-0.8); MONO % 7.2 % (0.0-5.0); NEUTROPHILS # 3.2 K/mm3 (1.8-7.7); NEUTROPHILS % 61.6 % (36.0-66.0); PLATELET COUNT, AUTOMATED 167 k/mm3 (150-450); RED CELL DISTRIBUTION WIDTH 12.9 % (11.5-14.5); WHITE BLOOD COUNT 5.2 K/mm3 (4.0-10.0)
[2016-04-23 12:41] LABS: ALBUMIN 3.4 GM/DL (3.2-5.2); ALKALINE PHOSPHATASE 70 U/L (45-117); ALT/SGPT 23 U/L (12-78); AMYLASE 50 U/L (25-115); ANION GAP 6 MEQ/L (8-16); AST/SGOT 14 U/L (15-37); BILIRUBIN,DIRECT < 0.1 MG/DL (0.0-0.2); BILIRUBIN,TOTAL 0.4 MG/DL (0.2-1.0); BLOOD UREA NITROGEN 9 MG/DL (7-18); CALCIUM LEVEL 8.9 MG/DL (8.5-10.1); CARBON DIOXIDE LEVEL 27 MEQ/L (21-32); CHLORIDE LEVEL 109 MEQ/L (98-107); CREATININE FOR GFR 0.77 MG/DL (0.55-1.02); GLOMERULAR FILTRATION RATE > 60.0 (>60); GLUCOSE, FASTING 93 MG/DL (70-105); POTASSIUM SERUM 3.6 MEQ/L (3.5-5.1); SODIUM LEVEL 142 MEQ/L (136-145); TOTAL PROTEIN 6.8 GM/DL (6.4-8.2)
[2016-04-23 13:17] LABS: CONTROL LINE UCG INT CTR LINE PRESENT
[2016-04-23] MEDS ORDERED: KETOROLAC 30 MG/ML VIAL (J1885) As Ordered ONE (13:24)
--- NOTE | 2016-04-23 13:51 | REP ---
Pelvic ultrasound with transabdominal and Doppler ultrasound assessment: The uterus is anteverted and anteflexed and normal size measuring 7.4 x 2.8 x 3.7 cm. The endometrium is not thickened measuring up to 3 mm. The ovaries are normal size. Right ovary measures 3.2 x 2.0 x 1.9 cm. Left ovary measures 2.7 by 2.0 x 1.8 cm. There is no dominant mass or cyst seen on the right on the left ovary. There is vascular flow in both ovaries. The Doppler resistive index of the intraparenchymal arteries on the right is 0.47 on the left 0.56. There is no free fluid. Impression: No evidence of torsion. No dominant ovarian mass or cyst. No free fluid. Essentially negative pelvic ultrasound. Signed by Joe Bruce MD 04/23/2016 01:42 P
--- NOTE | 2016-04-23 14:21 | EDDOCDS ---
Physician Documentation [facility] Name: Renuka Bernard Age: 20 yrs Sex: Female : 1995 Arrival Date: 04/23/2016 Time: 10:10 Bed I5 / M5 Private MD: BRE Morton Disposition: 04/23/16 13:51 Discharged to Home/Self Care. Impression: Nausea and vomiting, Lower abdominal pain, unspecified. - Condition is Stable. - Discharge Instructions: Abdominal Pain, Adult, Nausea and Vomiting. - Medication Reconciliation, Local Pharmacy Hours form. - Follow up: BRE Morton; When: Call to arrange an appointment; Reason: Recheck today's complaints. - Problem is new. - Symptoms have improved. - Notes: may use tylenol or ibuprofen as needed for mild to moderate pain Historical: - Allergies: no known allergies; - Home Meds: 1. BCP Oral 1 tab nightly 2. Prozac 40 mg Oral cap 1 cap once daily 3. symbicort 2 puffs twice daily - PMHx: Anxiety; Asthma; Depression; - PSHx: none; - Social history: Smoking status: Patient states former smoker of tobacco. No barriers to communication noted, The patient speaks fluent Greek. - Family history: Not pertinent. - : The pt / caregiver states he / she is not on anticoagulants. Home medication list is obtained from the patient. - Exposure Risk Screening:: None identified. WIND FIELD MANAGER: 04/23 10:23 LMP 04/03/2016 ms18 Vital Signs: 10:12 BP 98 / 66; Pulse 85; Resp 18; Temp 98.6(O); Pulse Ox 95% on R/A; Weight 77.11 kg / 170 dem1 lbs (R); Height 5 ft. 5 in. (165.10 cm) (R); Pain 9/10; 13:01 BP 112 / 63; Pulse 61; Resp 18; Pulse Ox 99% on R/A; Pain 7/10; kc3 14:17 BP 116 / 65; Pulse 63; Resp 16; Temp 98.0(T); Pulse Ox 100% on R/A; Pain 4/10; dem1 14:19 Pain 3/10; srm 10:12 Body Mass Index 28.29 (77.11 kg, 165.10 cm) dem1 MDM: 11:34 IV Saline Lock ordered. ar2 11:34 Undress patient appropriately for examination ordered. ar2 11:34 NS 0.9% 1000 ml IV at bolus once ordered. ar2 11:34 Metoclopramide 10 mg IV at 40 mg/hr once over 15 mins ordered. ar2 11:34 morphine 2 mg IVP once ordered. ar2 11:35 Amylase Ordered. EDMS 11:35 Basic Metabolic Profile Ordered. EDMS 11:35 CBC with Diff Ordered. EDMS 11:35 Lipase Ordered. EDMS 11:35 Liver Profile Ordered. EDMS 11:35 NOTHING BY MOUTH+DIET ordered. EDMS 11:35 UA Ordered. EDMS 12:02 Financial registration complete. lg 12:55 Basic Metabolic Profile Reviewed. ar2 12:55 CBC with Diff Reviewed. ar2 12:55 Liver Profile Reviewed. ar2 12:55 Amylase Reviewed. ar2 12:55 Lipase Reviewed. ar2 13:06 ketorolac 30 mg IVP once; ADMINISTER IF NEGATIVE UCG ordered. ar2 13:06 -US Pelvic Non-Ob Complete Ordered. EDMS 13:06 DUPLEX SCAN LIMITED (DOPPLER)+US Ordered. EDMS 13:06 UCG- In Lab Ordered. EDMS 13:15 [facility] Payment Agreement was scanned into [employer] and attached to record. lg 13:29 UA Reviewed. ar2 13:29 UCG- In Lab Reviewed. ar2 Administered Medications: 12:10 Drug: morphine 2 mg [morphine 2 mg/mL intravenous cartridge (1 mL)] Route: IVP; Site: kc3 left antecubital; 14:19 Follow up: Response: Pain is decreased srm 12:11 Drug: NS 0.9% 1000 ml [sodium chloride 0.9 % intravenous solution] Route: IV; Rate: kc3 bolus; Site: left antecubital; 14:19 Follow up: IV Status: Completed infusion srm 12:11 Drug: Metoclopramide 10 mg [metoclopramide 5 mg/mL injection solution] Route: IV; Rate: kc3 40 mg/hr; Infused Over: 15 mins; Site: left antecubital; 14:19 Follow up: Response: Nausea is resolved srm 13:35 Drug: ketorolac 30 mg [ketorolac 30 mg/mL (1 mL) injection solution (1 mL)] Route: IVP; kc3 Site: right antecubital; 14:19 Follow up: Pain 3/10 Adult; Response: Pain is decreased srm Signatures: Dispatcher [employer] EDLisette Paerson, RN RN srm Odilon Lizama, [place] Reg lg Rodrigo Alba, PAMaisha PAMaisha ar2 Cadence Milton RN RN [id number] Elisa Burns RN RN kc3 The chart was reviewed and I authenticate all verbal orders and agree with the evaluation and treatment provided.Attachments: 13:15 [facility] Payment Agreement lg MTDD
--- NOTE | 2016-04-23 14:21 | EDDOCDS ---
Nurse's Notes [facility] Name: Renuka Bernard Age: 20 yrs Sex: Female : 1995 Arrival Date: 04/23/2016 Time: 10:10 Bed I5 / M5 Private MD: BRE Morton Diagnosis: Nausea and vomiting;Lower abdominal pain, unspecified Presentation: 04/23 10:22 Presenting complaint: Patient states: that she was seen last night for abd pain. Pt ms18 states that the pain got worse overnight. Pt report nausea, denies vomiting. Adult Sepsis Screening: The patient does not have new or worsening altered mentation. Patient's respiratory rate is less than 22. Systolic blood pressure is greater than 100. Patient has a qSOFA score of 0- Negative Sepsis Screen. Suicide/Homicide risk assessment- the patient denies having any suicidal and/or homicidal ideations and does not present with any other emotional, behavioral or mental health complaints. Status: The patient is a dependent. Transition of care: patient was not received from another setting of care. 10:22 Acuity: PROSPER Level 3 ms18 10:22 Method Of Arrival: Walkin/Carried/Asstd ms18 Triage Assessment: 10:23 General: Appears in no apparent distress, uncomfortable, Behavior is appropriate for ms18 age, cooperative. Pain: Location: right upper quadrant and right lower quadrant Pain currently is 9 out of 10 on a pain scale. HIV screening NA for this visit Offered previously. Neurological: No deficits noted. Respiratory: No deficits noted. GI: Abdomen is non- distended Reports nausea. Derm: Skin is pink, warm & dry. 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 BCP Oral 1 tab nightly 2. Prozac 40 mg Oral cap 1 cap once daily 3. symbicort 2 puffs twice daily - PMHx: Anxiety; Asthma; Depression; - PSHx: none; - Social history: Smoking status: Patient states former smoker of tobacco. No barriers to communication noted, The patient speaks fluent Ecuadorean. - Family history: Not pertinent. - : The pt / caregiver states he / she is not on anticoagulants. Home medication list is obtained from the patient. - Exposure Risk Screening:: None identified. Screenin:09 Screening information is obtained from the patient. Fall risk: No risks identified. kc3 Assistance ADL's: requires no assistance with activities of daily living. Abuse/DV Screen: The patient / caregiver reports he/she is: not in a situation that causes fear, pain or injury. Nutritional screening: No deficits noted. Advance Directives: Currently, there is no health care proxy. home support is adequate. Assessment: 12:08 General: Appears in no apparent distress, comfortable, Behavior is appropriate for age, kc3 cooperative. Pain: Location: right lower quadrant. Neurological: Level of Consciousness is awake, alert, obeys commands, Oriented to person, place, time. Respiratory: Airway is patent Respiratory effort is even, unlabored. GI: Abdomen is flat, Bowel sounds present X 4 quads. Abd is soft Abd is tender to palpation Reports nausea. Derm: Skin is pink, warm & dry. Musculoskeletal: Circulation, motion, and sensation intact. 12:55 General: Appears in no apparent distress, comfortable, Behavior is appropriate for age, kc3 cooperative. General: Pt reports feeling better at this time. Pt ambulated to restroom and back to bed. No complaints at this time. . Pain: Location: abdomen. 14:18 Reassessment: Patient appears in no apparent distress at this time. Patient states srm feeling better. Patient states symptoms have improved. Vital Signs: 10:12 BP 98 / 66; Pulse 85; Resp 18; Temp 98.6(O); Pulse Ox 95% on R/A; Weight 77.11 kg (R); dem1 Height 5 ft. 5 in. (165.10 cm) (R); Pain 9/10; 13:01 BP 112 / 63; Pulse 61; Resp 18; Pulse Ox 99% on R/A; Pain 7/10; kc3 14:17 BP 116 / 65; Pulse 63; Resp 16; Temp 98.0(T); Pulse Ox 100% on R/A; Pain 4/10; dem1 14:19 Pain 3/10; srm 10:12 Body Mass Index 28.29 (77.11 kg, 165.10 cm) [facility] Vitals: 10:12 Log In Time: April 23, 2016 at 10:08. [facility] ED Course: 10:10 Patient visited by Nancy Muñoz. [facility] 10:10 Patient moved to Waiting dem1 10:11 BRE Morton is Private Physician. dem1 10:12 Patient visited by Nancy Muñoz. dem1 10:12 Patient moved to Pre RCE dem1 10:23 Triage Initiated ms18 11:11 Patient moved to Triage 1 jjr 11:15 Patient visited by Ngozi Ybarra PCA. jb5 11:19 Rodrigo Alba PA-C is PHCP. ar2 11:20 Blair Laguerre MD is Attending Physician. ar2 11:27 Patient visited by Rodrigo Alba PA-C. ar2 11:34 Patient moved to I5 / M5 jjr 11:42 Pt greeted and oriented to ED. Patient advised of names of staff involved in care, dem1 location of call stephenson, wait times and NPO status. Patient has correct armband on for positive identification. Placed in gown. 11:43 Patient visited by Nancy Muñoz. dem1 11:55 Patient visited by Elisa Burns RN. kc3 11:55 Amylase Sent. kc3 11:55 Basic Metabolic Profile Sent. kc3 11:55 CBC with Diff Sent. kc3 11:55 Lipase Sent. kc3 11:55 Liver Profile Sent. kc3 12:09 Inserted saline lock: 20 gauge in left antecubital area and blood collected. The kc3 patient tolerated the procedure well. Labs drawn. (by ED staff). Sent per order to lab. 12:12 The patient / caregiver is instructed regarding the plan of care and ED course. kc3 12:49 Patient visited by Elisa Burns RN. kc3 13:15 [facility] Payment Agreement was scanned into [employer] and attached to record. lg 13:18 Patient moved to Ultrasound am17 13:29 Patient moved to I5 / M5 am17 13:35 Patient visited by Elisa Burns,KEVIN. kc3 13:51 DRAGAN Morton is Referral Physician. ar2 14:04 -US Pelvic Non-Ob Complete Returned. EDMS 14:18 Patient visited by Nancy Muñoz. dem1 14:20 Discontinued lock intact, bleeding controlled, pressure dressing applied, No srm redness/swelling at site. No procedures done that require assistance. Administered Medications: 12:10 Drug: morphine 2 mg [morphine 2 mg/mL intravenous cartridge (1 mL)] Route: IVP; Site: kc3 left antecubital; 14:19 Follow up: Response: Pain is decreased srm 12:11 Drug: NS 0.9% 1000 ml [sodium chloride 0.9 % intravenous solution] Route: IV; Rate: kc3 bolus; Site: left antecubital; 14:19 Follow up: IV Status: Completed infusion srm 12:11 Drug: Metoclopramide 10 mg [metoclopramide 5 mg/mL injection solution] Route: IV; Rate: kc3 40 mg/hr; Infused Over: 15 mins; Site: left antecubital; 14:19 Follow up: Response: Nausea is resolved srm 13:35 Drug: ketorolac 30 mg [ketorolac 30 mg/mL (1 mL) injection solution (1 mL)] Route: IVP; kc3 Site: right antecubital; 14:19 Follow up: Pain 05/28 Adult; Response: Pain is decreased srm Intake: 14:18 IV: 1000.00ml (NS); Total: 1000.00ml. srm Order Results: Lab Order: Amylase; SPEC'M 04/23/16 11:52 Test: AMYLASE; Value: 50; Range: 25-115; Units: U/L; Status: F Lab Order: Basic Metabolic Profile; SPEC'M 04/23/16 11:52 Test: GLUCOSE, FASTING; Value: 93; Range: 70-105; Units: MG/DL; Status: F Test: BLOOD UREA NITROGEN; Value: 9; Range: 7-18; Units: MG/DL; Status: F Test: CREATININE FOR GFR; Value: 0.77; Range: 0.55-1.02; Units: MG/DL; Status: F Test: GLOMERULAR FILTRATION RATE; Value: > 60.0; Range: >60; Status: F Test: SODIUM LEVEL; Value: 142; Range: 136-145; Units: MEQ/L; Status: F Test: POTASSIUM SERUM; Value: 3.6; Range: 3.5-5.1; Units: MEQ/L; Status: F Test: CHLORIDE LEVEL; Value: 109; Range: 98-107; Abnormal: Above high normal; Units: MEQ/L; Status: F Test: CARBON DIOXIDE LEVEL; Value: 27; Range: 21-32; Units: MEQ/L; Status: F Test: ANION GAP; Value: 6; Range: 8-16; Abnormal: Below low normal; Units: MEQ/L; Status: F Test: CALCIUM LEVEL; Value: 8.9; Range: 8.5-10.1; Units: MG/DL; Status: F Test Note: ; Units are mL/min/1.73 m2 Chronic Kidney Disease Staging per NKF: Stage I & II GFR >=60 Normal to Mildly Decreased Stage III GFR 30-59 Moderately Decreased Stage IV GFR 15-29 Severely Decreased Stage V GFR <15 Very Little GFR Left ESRD GFR <15 on FUNCTIONAL TESTER Lab Order: CBC with Diff; SPEC'M 04/23/16 11:52 Test: WHITE BLOOD COUNT; Value: 5.2; Range: 4.0-10.0; Units: K/mm3; Status: F Test: RED BLOOD COUNT; Value: 4.29; Range: 4.00-5.40; Units: M/mm3; Status: F Test: HEMOGLOBIN; Value: 12.6; Range: 12.0-16.0; Abnormal: Delta; Units: g/dl; Status: F Test: HEMATOCRIT; Value: 37.8; Range: 36.0-47.0; Units: %; Status: F Test: MEAN CORPUSCULAR VOLUME; Value: 88.3; Range: 80.0-96.0; Units: fl; Status: F Test: MEAN CORPUSCULAR HEMOGLOBIN; Value: 29.5; Range: 27.0-33.0; Units: pg; Status: F Test: MEAN CORPUSCULAR HGB CONC; Value: 33.4; Range: 32.0-36.5; Units: g/dl; Status: F Test: RED CELL DISTRIBUTION WIDTH; Value: 12.9; Range: 11.5-14.5; Units: %; Status: F Test: PLATELET COUNT, AUTOMATED; Value: 167; Range: 150-450; Units: k/mm3; Status: F Test: NEUTROPHILS %; Value: 61.6; Range: 36.0-66.0; Units: %; Status: F Test: LYMPH %; Value: 25.9; Range: 24.0-44.0; Units: %; Status: F Test: MONO %; Value: 7.2; Range: 0.0-5.0; Abnormal: Above high normal; Units: %; Status: F Test: EOS %; Value: 2.7; Range: 0.0-3.0; Units: %; Status: F Test: BASO %; Value: 0.4; Range: 0.0-1.0; Units: %; Status: F Test: LARGE UNSTAINED CELL %; Value: 2.2; Range: 0.0-4.0; Units: %; Status: F Test: NEUTROPHILS #; Value: 3.2; Range: 1.8-7.7; Units: K/mm3; Status: F Test: LYMPH #; Value: 1.3; Range: 1.5-6.5; Abnormal: Below low normal; Units: K/mm3; Status: F Test: MONO #; Value: 0.4; Range: 0.0-0.8; Units: K/mm3; Status: F Test: EOS #; Value: 0.1; Range: 0.0-0.50; Units: K/mm3; Status: F Test: BASO #; Value: 0.0; Range: 0.0-0.2; Units: K/mm3; Status: F Test: LARGE UNSTAINED CELL #; Value: 0.1; Range: 0.0-0.4; Units: K/mm3; Status: F Lab Order: Lipase; SPEC' 04/23/16 11:52 Test: LIPASE; Value: 139; Range: 73-393; Units: U/L; Status: F Lab Order: Liver Profile; SPEC' 04/23/16 11:52 Test: AST/SGOT; Value: 14; Range: 15-37; Abnormal: Below low normal; Units: U/L; Status: F Test: ALT/SGPT; Value: 23; Range: 12-78; Units: U/L; Status: F Test: ALKALINE PHOSPHATASE; Value: 70; Range: 45-117; Units: U/L; Status: F Test: BILIRUBIN,TOTAL; Value: 0.4; Range: 0.2-1.0; Units: MG/DL; Status: F Test: BILIRUBIN,DIRECT; Value: < 0.1; Range: 0.0-0.2; Units: MG/DL; Status: F Test: TOTAL PROTEIN; Value: 6.8; Range: 6.4-8.2; Units: GM/DL; Status: F Test: ALBUMIN; Value: 3.4; Range: 3.2-5.2; Units: GM/DL; Status: F Test: ALBUMIN/GLOBULIN RATIO; Value: 1.00; Range: 1.00-1.93; Status: F Lab Order: UA; SPEC'M 04/23/16 12:59 Test: APPEARANCE, URINE; Value: CLOUDY; Range: CLEAR; Abnormal: Above high normal; Status: F Test: COLOR, URINE; Value: YELLOW; Range: YELLOW; Status: F Test: PH,URINE; Value: 5.0; Range: 5.0-9.0; Units: UNITS; Status: F Test: SPECIFIC GRAVITY URINE AUTO; Value: 1.021; Range: 1.002-1.035; Status: F Test: PROTEIN, URINE AUTO; Value: NEGATIVE; Range: NEGATIVE; Units: mg/dL; Status: F Test: GLUCOSE, URINE (UA) AUTO; Value: NEGATIVE; Range: NEGATIVE; Units: mg/dL; Status: F Test: KETONE, URINE AUTO; Value: NEGATIVE; Range: NEGATIVE; Units: mg/dL; Status: F Test: UROBILINOGEN, URINE AUTO; Value: 0.2; Range: 0.0-2.0; Units: mg/dL; Status: F Test: BILIRUBIN, URINE AUTO; Value: NEGATIVE; Range: NEGATIVE; Status: F Test: NITRITE, URINE AUTO; Value: NEGATIVE; Range: NEGATIVE; Status: F Test: LEUKOCYTE ESTERASE, URINE AUTO; Value: 3+; Range: NEGATIVE; Abnormal: Above high normal; Status: F Test: BLOOD, URINE BLOOD; Value: 1+; Range: NEGATIVE; Abnormal: Above high normal; Status: F Test: WBC, URINE AUTO; Value: 37; Range: 0-3; Abnormal: Above high normal; Units: /HPF; Status: F Test: RBC, URINE AUTO; Value: 2; Range: 0-3; Units: /HPF; Status: F Test: BACTERIA, URINE AUTO; Value: 1+; Range: NEGATIVE; Abnormal: Above high normal; Status: F Test: SQUAMOUS EPITHELIAL CELL UR AU; Value: 19; Range: 0-6; Units: /HPF; Status: F Test: MUCUS, URINE; Value: SMALL; Range: NEGATIVE; Status: F Test: HYALINE CAST, URINE AUTO; Value: 0; Range: 0-1; Units: /LPF; Status: F Lab Order: UCG- In Lab; ROCK 04/23/16 12:59 Test: URINE PREG TEST; Value: NEGATIVE; Range: NEGATIVE; Status: F Radiology Order: -US Pelvic Non-Ob Complete Test: -US Pelvic Non-Ob Complete REASON FOR EXAMINATION: Adnexal Pain r/o Torsion; Pelvic ultrasound with transabdominal and Doppler ultrasound assessment:; ; The uterus is anteverted and anteflexed and normal size measuring 7.4 x 2.8 x 3.7; cm.; ; The endometrium is not thickened measuring up to 3 mm.; ; The ovaries are normal size.; Right ovary measures 3.2 x 2.0 x 1.9 cm.; Left ovary measures 2.7 by 2.0 x 1.8 cm.; ; There is no dominant mass or cyst seen on the right on the left ovary.; ; There is vascular flow in both ovaries. The Doppler resistive index of the; intraparenchymal arteries on the right is 0.47 on the left 0.56.; ; There is no free fluid.; ; Impression:; ; No evidence of torsion. No dominant ovarian mass or cyst. No free fluid.; Essentially negative pelvic ultrasound.; ; ; Signed by; Joe Bruce MD 04/23/2016 01:42 P; Outcome: 13:51 Discharge ordered by Provider. ar2 14:20 Discharge Assessment: Patient awake, alert and oriented x 3. No cognitive and/or srm functional deficits noted. Patient verbalized understanding of disposition instructions. patient administered narcotics - yes. Pt provided with safe discharge. The following High Risk Discharge criteria are identified: None. Discharged to home ambulatory, with significant other. Condition: stable Condition: improved. Discharge instructions given to patient, Instructed on discharge instructions, follow up and referral plans. medication usage, diet, Demonstrated understanding of instructions, Pt was receptive of discharge instructions/ teaching. Ultrasound Study completed. Property sent home with patient. 14:20 Patient left the ED. srm Signatures: Dispatcher [employer] EDLisette Pearson RN RN srm Ganter, LoriLee, Nato Dutton lg Ngozi Ybarra, DRIVER OPERATOR DRIVER OPERATOR jb5 Gifty Ashford RN RN jjr Robertshaw, Rodrigo, CESIA PAMaisha zimmerman2 Nancy Muñoz1 Anna Romano am17 Cadence Milton,RN RN ms18 Elisa Burns RN RN kc3 MTDD
--- NOTE | 2016-04-25 15:21 | EDDOCDS ---
Nurse's Notes [facility] Name: Renuka Bernard Age: 20 yrs Sex: Female : 1995 Arrival Date: 04/23/2016 Time: 10:10 Bed I5 / M5 Private MD: BRE Morton Diagnosis: Nausea and vomiting;Lower abdominal pain, unspecified Presentation: 04/23 10:22 Presenting complaint: Patient states: that she was seen last night for abd pain. Pt ms18 states that the pain got worse overnight. Pt report nausea, denies vomiting. Adult Sepsis Screening: The patient does not have new or worsening altered mentation. Patient's respiratory rate is less than 22. Systolic blood pressure is greater than 100. Patient has a qSOFA score of 0- Negative Sepsis Screen. Suicide/Homicide risk assessment- the patient denies having any suicidal and/or homicidal ideations and does not present with any other emotional, behavioral or mental health complaints. Status: The patient is a dependent. Transition of care: patient was not received from another setting of care. 10:22 Acuity: PROSPER Level 3 ms18 10:22 Method Of Arrival: Walkin/Carried/Asstd ms18 Triage Assessment: 10:23 General: Appears in no apparent distress, uncomfortable, Behavior is appropriate for ms18 age, cooperative. Pain: Location: right upper quadrant and right lower quadrant Pain currently is 9 out of 10 on a pain scale. HIV screening NA for this visit Offered previously. Neurological: No deficits noted. Respiratory: No deficits noted. GI: Abdomen is non- distended Reports nausea. Derm: Skin is pink, warm & dry. 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 BCP Oral 1 tab nightly 2. Prozac 40 mg Oral cap 1 cap once daily 3. symbicort 2 puffs twice daily - PMHx: Anxiety; Asthma; Depression; - PSHx: none; - Social history: Smoking status: Patient states former smoker of tobacco. No barriers to communication noted, The patient speaks fluent Ivorian. - Family history: Not pertinent. - : The pt / caregiver states he / she is not on anticoagulants. Home medication list is obtained from the patient. - Exposure Risk Screening:: None identified. Screenin:09 Screening information is obtained from the patient. Fall risk: No risks identified. kc3 Assistance ADL's: requires no assistance with activities of daily living. Abuse/DV Screen: The patient / caregiver reports he/she is: not in a situation that causes fear, pain or injury. Nutritional screening: No deficits noted. Advance Directives: Currently, there is no health care proxy. home support is adequate. Assessment: 12:08 General: Appears in no apparent distress, comfortable, Behavior is appropriate for age, kc3 cooperative. Pain: Location: right lower quadrant. Neurological: Level of Consciousness is awake, alert, obeys commands, Oriented to person, place, time. Respiratory: Airway is patent Respiratory effort is even, unlabored. GI: Abdomen is flat, Bowel sounds present X 4 quads. Abd is soft Abd is tender to palpation Reports nausea. Derm: Skin is pink, warm & dry. Musculoskeletal: Circulation, motion, and sensation intact. 12:55 General: Appears in no apparent distress, comfortable, Behavior is appropriate for age, kc3 cooperative. General: Pt reports feeling better at this time. Pt ambulated to restroom and back to bed. No complaints at this time. . Pain: Location: abdomen. 14:18 Reassessment: Patient appears in no apparent distress at this time. Patient states srm feeling better. Patient states symptoms have improved. Vital Signs: 10:12 BP 98 / 66; Pulse 85; Resp 18; Temp 98.6(O); Pulse Ox 95% on R/A; Weight 77.11 kg (R); dem1 Height 5 ft. 5 in. (165.10 cm) (R); Pain 9/10; 13:01 BP 112 / 63; Pulse 61; Resp 18; Pulse Ox 99% on R/A; Pain 7/10; kc3 14:17 BP 116 / 65; Pulse 63; Resp 16; Temp 98.0(T); Pulse Ox 100% on R/A; Pain 4/10; dem1 14:19 Pain 3/10; srm 10:12 Body Mass Index 28.29 (77.11 kg, 165.10 cm) [facility] Vitals: 10:12 Log In Time: April 23, 2016 at 10:08. [facility] ED Course: 10:10 Patient visited by Nancy Muñoz. [facility] 10:10 Patient moved to Waiting dem1 10:11 BRE Morton is Private Physician. dem1 10:12 Patient visited by Nancy Muñoz. dem1 10:12 Patient moved to Pre RCE dem1 10:23 Triage Initiated ms18 11:11 Patient moved to Triage 1 jjr 11:15 Patient visited by Ngozi Ybarra PCA. jb5 11:19 Rodrigo Alba PA-C is PHCP. ar2 11:20 Blair Laguerre MD is Attending Physician. ar2 11:27 Patient visited by Rodrigo Alba PA-C. ar2 11:34 Patient moved to I5 / M5 jjr 11:42 Pt greeted and oriented to ED. Patient advised of names of staff involved in care, dem1 location of call stephenson, wait times and NPO status. Patient has correct armband on for positive identification. Placed in gown. 11:43 Patient visited by Nancy Muñoz. dem1 11:55 Patient visited by Elisa Burns RN. kc3 11:55 Amylase Sent. kc3 11:55 Basic Metabolic Profile Sent. kc3 11:55 CBC with Diff Sent. kc3 11:55 Lipase Sent. kc3 11:55 Liver Profile Sent. kc3 12:09 Inserted saline lock: 20 gauge in left antecubital area and blood collected. The kc3 patient tolerated the procedure well. Labs drawn. (by ED staff). Sent per order to lab. 12:12 The patient / caregiver is instructed regarding the plan of care and ED course. kc3 12:49 Patient visited by Elisa Burns RN. kc3 13:15 [facility] Payment Agreement was scanned into [employer] [place] and attached to record. lg 13:18 Patient moved to Ultrasound am17 13:29 Patient moved to I5 / M5 am17 13:35 Patient visited by Elisa Burns,KVEIN. kc3 13:51 [facility] [place] Phys[place]. ar2 14:04 -US Pelvic Non-Ob Complete Returned. EDMS 14:18 Patient visited by Nancy Muñoz. dem1 14:20 Discontinued lock intact, bleeding controlled, pressure dressing applied, No srm redness/swelling at site. No procedures done that require assistance. 15:38 T-Sheet-- Draft Copy was scanned into [employer] and attached to record. gb 15:38 Radiology Report was scanned into [employer] and attached to record. gb Administered Medications: 12:10 Drug: morphine 2 mg [morphine 2 mg/mL intravenous cartridge (1 mL)] Route: IVP; Site: kc3 left antecubital; 14:19 Follow up: Response: Pain is decreased srm 12:11 Drug: NS 0.9% 1000 ml [sodium chloride 0.9 % intravenous solution] Route: IV; Rate: kc3 bolus; Site: left antecubital; 14:19 Follow up: IV Status: Completed infusion srm 12:11 Drug: Metoclopramide 10 mg [metoclopramide 5 mg/mL injection solution] Route: IV; Rate: kc3 40 mg/hr; Infused Over: 15 mins; Site: left antecubital; 14:19 Follow up: Response: Nausea is resolved srm 13:35 Drug: ketorolac 30 mg [ketorolac 30 mg/mL (1 mL) injection solution (1 mL)] Route: IVP; kc3 Site: right antecubital; 14:19 Follow up: Pain 3/10 Adult; Response: Pain is decreased srm Intake: 14:18 IV: 1000.00ml (NS); Total: 1000.00ml. srm Order Results: Lab Order: Amylase; SPEC'M 04/23/16 11:52 Test: AMYLASE; Value: 50; Range: 25-115; Units: U/L; Status: F Lab Order: Basic Metabolic Profile; SPEC'M 04/23/16 11:52 Test: GLUCOSE, FASTING; Value: 93; Range: 70-105; Units: MG/DL; Status: F Test: BLOOD UREA NITROGEN; Value: 9; Range: 7-18; Units: MG/DL; Status: F Test: CREATININE FOR GFR; Value: 0.77; Range: 0.55-1.02; Units: MG/DL; Status: F Test: GLOMERULAR FILTRATION RATE; Value: > 60.0; Range: >60; Status: F Test: SODIUM LEVEL; Value: 142; Range: 136-145; Units: MEQ/L; Status: F Test: POTASSIUM SERUM; Value: 3.6; Range: 3.5-5.1; Units: MEQ/L; Status: F Test: CHLORIDE LEVEL; Value: 109; Range: 98-107; Abnormal: Above high normal; Units: MEQ/L; Status: F Test: CARBON DIOXIDE LEVEL; Value: 27; Range: 21-32; Units: MEQ/L; Status: F Test: ANION GAP; Value: 6; Range: 8-16; Abnormal: Below low normal; Units: MEQ/L; Status: F Test: CALCIUM LEVEL; Value: 8.9; Range: 8.5-10.1; Units: MG/DL; Status: F Test Note: ; Units are mL/min/1.73 m2 Chronic Kidney Disease Staging per NKF: Stage I & II GFR >=60 Normal to Mildly Decreased Stage III GFR 30-59 Moderately Decreased Stage IV GFR 15-29 Severely Decreased Stage V GFR <15 Very Little GFR Left ESRD GFR <15 on CONTROL ROOM TENDER Lab Order: CBC with Diff; SPEC'M 04/23/16 11:52 Test: WHITE BLOOD COUNT; Value: 5.2; Range: 4.0-10.0; Units: K/mm3; Status: F Test: RED BLOOD COUNT; Value: 4.29; Range: 4.00-5.40; Units: M/mm3; Status: F Test: HEMOGLOBIN; Value: 12.6; Range: 12.0-16.0; Abnormal: Delta; Units: g/dl; Status: F Test: HEMATOCRIT; Value: 37.8; Range: 36.0-47.0; Units: %; Status: F Test: MEAN CORPUSCULAR VOLUME; Value: 88.3; Range: 80.0-96.0; Units: fl; Status: F Test: MEAN CORPUSCULAR HEMOGLOBIN; Value: 29.5; Range: 27.0-33.0; Units: pg; Status: F Test: MEAN CORPUSCULAR HGB CONC; Value: 33.4; Range: 32.0-36.5; Units: g/dl; Status: F Test: RED CELL DISTRIBUTION WIDTH; Value: 12.9; Range: 11.5-14.5; Units: %; Status: F Test: PLATELET COUNT, AUTOMATED; Value: 167; Range: 150-450; Units: k/mm3; Status: F Test: NEUTROPHILS %; Value: 61.6; Range: 36.0-66.0; Units: %; Status: F Test: LYMPH %; Value: 25.9; Range: 24.0-44.0; Units: %; Status: F Test: MONO %; Value: 7.2; Range: 0.0-5.0; Abnormal: Above high normal; Units: %; Status: F Test: EOS %; Value: 2.7; Range: 0.0-3.0; Units: %; Status: F Test: BASO %; Value: 0.4; Range: 0.0-1.0; Units: %; Status: F Test: LARGE UNSTAINED CELL %; Value: 2.2; Range: 0.0-4.0; Units: %; Status: F Test: NEUTROPHILS #; Value: 3.2; Range: 1.8-7.7; Units: K/mm3; Status: F Test: LYMPH #; Value: 1.3; Range: 1.5-6.5; Abnormal: Below low normal; Units: K/mm3; Status: F Test: MONO #; Value: 0.4; Range: 0.0-0.8; Units: K/mm3; Status: F Test: EOS #; Value: 0.1; Range: 0.0-0.50; Units: K/mm3; Status: F Test: BASO #; Value: 0.0; Range: 0.0-0.2; Units: K/mm3; Status: F Test: LARGE UNSTAINED CELL #; Value: 0.1; Range: 0.0-0.4; Units: K/mm3; Status: F Lab Order: Lipase; [facility]' 04/23/16 11:52 Test: LIPASE; Value: 139; Range: 73-393; Units: U/L; Status: F Lab Order: Liver Profile; SPEC' 04/23/16 11:52 Test: AST/SGOT; Value: 14; Range: 15-37; Abnormal: Below low normal; Units: U/L; Status: F Test: ALT/SGPT; Value: 23; Range: 12-78; Units: U/L; Status: F Test: ALKALINE PHOSPHATASE; Value: 70; Range: 45-117; Units: U/L; Status: F Test: BILIRUBIN,TOTAL; Value: 0.4; Range: 0.2-1.0; Units: MG/DL; Status: F Test: BILIRUBIN,DIRECT; Value: < 0.1; Range: 0.0-0.2; Units: MG/DL; Status: F Test: TOTAL PROTEIN; Value: 6.8; Range: 6.4-8.2; Units: GM/DL; Status: F Test: ALBUMIN; Value: 3.4; Range: 3.2-5.2; Units: GM/DL; Status: F Test: ALBUMIN/GLOBULIN RATIO; Value: 1.00; Range: 1.00-1.93; Status: F Lab Order: UA; SPEC'M 04/23/16 12:59 Test: APPEARANCE, URINE; Value: CLOUDY; Range: CLEAR; Abnormal: Above high normal; Status: F Test: COLOR, URINE; Value: YELLOW; Range: YELLOW; Status: F Test: PH,URINE; Value: 5.0; Range: 5.0-9.0; Units: UNITS; Status: F Test: SPECIFIC GRAVITY URINE AUTO; Value: 1.021; Range: 1.002-1.035; Status: F Test: PROTEIN, URINE AUTO; Value: NEGATIVE; Range: NEGATIVE; Units: mg/dL; Status: F Test: GLUCOSE, URINE (UA) AUTO; Value: NEGATIVE; Range: NEGATIVE; Units: mg/dL; Status: F Test: KETONE, URINE AUTO; Value: NEGATIVE; Range: NEGATIVE; Units: mg/dL; Status: F Test: UROBILINOGEN, URINE AUTO; Value: 0.2; Range: 0.0-2.0; Units: mg/dL; Status: F Test: BILIRUBIN, URINE AUTO; Value: NEGATIVE; Range: NEGATIVE; Status: F Test: NITRITE, URINE AUTO; Value: NEGATIVE; Range: NEGATIVE; Status: F Test: LEUKOCYTE ESTERASE, URINE AUTO; Value: 3+; Range: NEGATIVE; Abnormal: Above high normal; Status: F Test: BLOOD, URINE BLOOD; Value: 1+; Range: NEGATIVE; Abnormal: Above high normal; Status: F Test: WBC, URINE AUTO; Value: 37; Range: 0-3; Abnormal: Above high normal; Units: /HPF; Status: F Test: RBC, URINE AUTO; Value: 2; Range: 0-3; Units: /HPF; Status: F Test: BACTERIA, URINE AUTO; Value: 1+; Range: NEGATIVE; Abnormal: Above high normal; Status: F Test: SQUAMOUS EPITHELIAL CELL UR AU; Value: 19; Range: 0-6; Units: /HPF; Status: F Test: MUCUS, URINE; Value: SMALL; Range: NEGATIVE; Status: F Test: HYALINE CAST, URINE AUTO; Value: 0; Range: 0-1; Units: /LPF; Status: F Lab Order: UCG- In Lab; [facility] 04/23/16 12:59 Test: URINE PREG TEST; Value: NEGATIVE; Range: NEGATIVE; Status: F Radiology Order: -US Pelvic Non-Ob Complete Test: -US Pelvic Non-Ob Complete REASON FOR EXAMINATION: Adnexal Pain r/o Torsion; Pelvic ultrasound with transabdominal and Doppler ultrasound assessment:; ; The uterus is anteverted and anteflexed and normal size measuring 7.4 x 2.8 x 3.7; cm.; ; The endometrium is not thickened measuring up to 3 mm.; ; The ovaries are normal size.; Right ovary measures 3.2 x 2.0 x 1.9 cm.; Left ovary measures 2.7 by 2.0 x 1.8 cm.; ; There is no dominant mass or cyst seen on the right on the left ovary.; ; There is vascular flow in both ovaries. The Doppler resistive index of the; intraparenchymal arteries on the right is 0.47 on the left 0.56.; ; There is no free fluid.; ; Impression:; ; No evidence of torsion. No dominant ovarian mass or cyst. No free fluid.; Essentially negative pelvic ultrasound.; ; ; Signed by; Joe Bruce MD 04/23/2016 01:42 P; Outcome: 13:51 Discharge ordered by Provider. ar2 14:20 Discharge Assessment: Patient awake, alert and oriented x 3. No cognitive and/or srm functional deficits noted. Patient verbalized understanding of disposition instructions. patient administered narcotics - yes. Pt provided with safe discharge. The following High Risk Discharge criteria are identified: None. Discharged to home ambulatory, with significant other. Condition: stable Condition: improved. Discharge instructions given to patient, Instructed on discharge instructions, follow up and referral plans. medication usage, diet, Demonstrated understanding of instructions, Pt was receptive of discharge instructions/ teaching. Ultrasound Study completed. Property sent home with patient. 14:20 Patient left the ED. srm Signatures: Dispatcher [facility] EDL[facility]ette Pearson, RN RN srm Dk, Candy, Reg Reg gb Odilon Lizama, Reg Reg lg Ngozi Ybarra, TEST CASE DEVELOPER TEST CASE DEVELOPER jb5 Gifty Ashford, RN RN jyifanr Rodrigo Alba, PA-C PA-C ar2 Nancy Muñoz1 Anna Romano am17 Cadence Milton RN RN ms18 Elisa BurnsRN RN kc3 Chart Complete MTDD
--- NOTE | 2016-04-25 15:21 | EDDOCDS ---
Physician Documentation [facility] Name: Renuka Bernard Age: 20 yrs Sex: Female : 1995 Arrival Date: 04/23/2016 Time: 10:10 Bed I5 / M5 Private MD: BRE Morton Disposition: 04/23/16 13:51 Discharged to Home/Self Care. Impression: Nausea and vomiting, Lower abdominal pain, unspecified. - Condition is Stable. - Discharge Instructions: Abdominal Pain, Adult, Nausea and Vomiting. - Medication Reconciliation, Local Pharmacy Hours form. - Follow up: BRE Morton; When: Call to arrange an appointment; Reason: Recheck today's complaints. - Problem is new. - Symptoms have improved. - Notes: may use tylenol or ibuprofen as needed for mild to moderate pain Historical: - Allergies: no known allergies; - Home Meds: 1. BCP Oral 1 tab nightly 2. Prozac 40 mg Oral cap 1 cap once daily 3. symbicort 2 puffs twice daily - PMHx: Anxiety; Asthma; Depression; - PSHx: none; - Social history: Smoking status: Patient states former smoker of tobacco. No barriers to communication noted, The patient speaks fluent Wallisian. - Family history: Not pertinent. - : The pt / caregiver states he / she is not on anticoagulants. Home medication list is obtained from the patient. - Exposure Risk Screening:: None identified. 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 5 in. (165.10 cm) (R); Pain 9/10; 13:01 BP 112 / 63; Pulse 61; Resp 18; Pulse Ox 99% on R/A; Pain 7/10; kc3 14:17 BP 116 / 65; Pulse 63; Resp 16; Temp 98.0(T); Pulse Ox 100% on R/A; Pain 4/10; dem1 14:19 Pain 3/10; srm 10:12 Body Mass Index 28.29 (77.11 kg, 165.10 cm) dem1 MDM: 11:34 IV Saline Lock ordered. ar2 11:34 Undress patient appropriately for examination ordered. ar2 11:34 NS 0.9% 1000 ml IV at bolus once ordered. ar2 11:34 Metoclopramide 10 mg IV at 40 mg/hr once over 15 mins ordered. ar2 11:34 morphine 2 mg IVP once ordered. ar2 11:35 Amylase Ordered. EDMS 11:35 Basic Metabolic Profile Ordered. EDMS 11:35 CBC with Diff Ordered. EDMS 11:35 Lipase Ordered. EDMS 11:35 Liver Profile Ordered. EDMS 11:35 NOTHING BY MOUTH+DIET ordered. EDMS 11:35 UA Ordered. EDMS 12:02 Financial registration complete. lg 12:55 Basic Metabolic Profile Reviewed. ar2 12:55 CBC with Diff Reviewed. ar2 12:55 Liver Profile Reviewed. ar2 12:55 Amylase Reviewed. ar2 12:55 Lipase Reviewed. ar2 13:06 ketorolac 30 mg IVP once; ADMINISTER IF NEGATIVE UCG ordered. ar2 13:06 -US Pelvic Non-Ob Complete Ordered. EDMS 13:06 DUPLEX SCAN LIMITED (DOPPLER)+US Ordered. EDMS 13:06 UCG- In Lab Ordered. EDMS 13:15 [facility] Payment Agreement was scanned into [employer] and attached to record. lg 13:29 UA Reviewed. ar2 13:29 UCG- In Lab Reviewed. ar2 15:38 T-Sheet-- Draft Copy was scanned into [employer] and attached to record. gb 15:38 Radiology Report was scanned into [employer] and attached to record. gb Administered Medications: 12:10 Drug: morphine 2 mg [morphine 2 mg/mL intravenous cartridge (1 mL)] Route: IVP; Site: kc3 left antecubital; 14:19 Follow up: Response: Pain is decreased srm 12:11 Drug: NS 0.9% 1000 ml [sodium chloride 0.9 % intravenous solution] Route: IV; Rate: kc3 bolus; Site: left antecubital; 14:19 Follow up: IV Status: Completed infusion srm 12:11 Drug: Metoclopramide 10 mg [metoclopramide 5 mg/mL injection solution] Route: IV; Rate: kc3 40 mg/hr; Infused Over: 15 mins; Site: left antecubital; 14:19 Follow up: Response: Nausea is resolved srm 13:35 Drug: ketorolac 30 mg [ketorolac 30 mg/mL (1 mL) injection solution (1 mL)] Route: IVP; kc3 Site: right antecubital; 14:19 Follow up: Pain 10 Adult; Response: Pain is decreased srm Signatures: Dispatcher [employer] EDLisette Pearson, KEVIN RN srm Candy Root, Reg Reg gb Odilon Lizama, Reg Reg lg Rodrigo Alba PA-C PA-C ar2 Cadence Milton RN RN ms18 Elisa Burns RN RN kc3 The chart was reviewed and I authenticate all verbal orders and agree with the evaluation and treatment provided.Attachments: 13:15 [facility] lg 15:38 T-Sheet-- Draft Copy Chart Complete MTDD
--- NOTE | 2016-04-25 15:21 | EDDOCDS ---
Physician Documentation [facility] Name: Renuka Bernard Age: 20 yrs Sex: Female : 1995 Arrival Date: 04/23/2016 Time: 10:10 Bed I5 / M5 Private MD: BRE Morton Disposition: 04/23/16 13:51 Discharged to Home/Self Care. Impression: Nausea and vomiting, Lower abdominal pain, unspecified. - Condition is Stable. - Discharge Instructions: Abdominal Pain, Adult, Nausea and Vomiting. - Medication Reconciliation, Local Pharmacy Hours form. - Follow up: BRE Morton; When: Call to arrange an appointment; Reason: Recheck today's complaints. - Problem is new. - Symptoms have improved. - Notes: may use tylenol or ibuprofen as needed for mild to moderate pain Historical: - Allergies: no known allergies; - Home Meds: 1. BCP Oral 1 tab nightly 2. Prozac 40 mg Oral cap 1 cap once daily 3. symbicort 2 puffs twice daily - PMHx: Anxiety; Asthma; Depression; - PSHx: none; - Social history: Smoking status: Patient states former smoker of tobacco. No barriers to communication noted, The patient speaks fluent Monegasque. - Family history: Not pertinent. - : The pt / caregiver states he / she is not on anticoagulants. Home medication list is obtained from the patient. - Exposure Risk Screening:: None identified. 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 5 in. (165.10 cm) (R); Pain 9/10; 13:01 BP 112 / 63; Pulse 61; Resp 18; Pulse Ox 99% on R/A; Pain 7/10; kc3 14:17 BP 116 / 65; Pulse 63; Resp 16; Temp 98.0(T); Pulse Ox 100% on R/A; Pain 4/10; dem1 14:19 Pain 3/10; srm 10:12 Body Mass Index 28.29 (77.11 kg, 165.10 cm) dem1 MDM: 11:34 IV Saline Lock ordered. ar2 11:34 Undress patient appropriately for examination ordered. ar2 11:34 NS 0.9% 1000 ml IV at bolus once ordered. ar2 11:34 Metoclopramide 10 mg IV at 40 mg/hr once over 15 mins ordered. ar2 11:34 morphine 2 mg IVP once ordered. ar2 11:35 Amylase Ordered. EDMS 11:35 Basic Metabolic Profile Ordered. EDMS 11:35 CBC with Diff Ordered. EDMS 11:35 Lipase Ordered. EDMS 11:35 Liver Profile Ordered. EDMS 11:35 NOTHING BY MOUTH+DIET ordered. EDMS 11:35 UA Ordered. EDMS 12:02 Financial registration complete. lg 12:55 Basic Metabolic Profile Reviewed. ar2 12:55 CBC with Diff Reviewed. ar2 12:55 Liver Profile Reviewed. ar2 12:55 Amylase Reviewed. ar2 12:55 Lipase Reviewed. ar2 13:06 ketorolac 30 mg IVP once; ADMINISTER IF NEGATIVE UCG ordered. ar2 13:06 -US Pelvic Non-Ob Complete Ordered. EDMS 13:06 DUPLEX SCAN LIMITED (DOPPLER)+US Ordered. EDMS 13:06 UCG- In Lab Ordered. EDMS 13:15 [facility] Payment Agreement was scanned into [employer] and attached to record. lg 13:29 UA Reviewed. ar2 13:29 UCG- In Lab Reviewed. ar2 15:38 T-Sheet-- Draft Copy was scanned into [employer] and attached to record. gb 15:38 Radiology Report was scanned into [employer] and attached to record. gb Administered Medications: 12:10 Drug: morphine 2 mg [morphine 2 mg/mL intravenous cartridge (1 mL)] Route: IVP; Site: kc3 left antecubital; 14:19 Follow up: Response: Pain is decreased srm 12:11 Drug: NS 0.9% 1000 ml [sodium chloride 0.9 % intravenous solution] Route: IV; Rate: kc3 bolus; Site: left antecubital; 14:19 Follow up: IV Status: Completed infusion srm 12:11 Drug: Metoclopramide 10 mg [metoclopramide 5 mg/mL injection solution] Route: IV; Rate: kc3 40 mg/hr; Infused Over: 15 mins; Site: left antecubital; 14:19 Follow up: Response: Nausea is resolved srm 13:35 Drug: ketorolac 30 mg [ketorolac 30 mg/mL (1 mL) injection solution (1 mL)] Route: IVP; kc3 Site: right antecubital; 14:19 Follow up: Pain 10 Adult; Response: Pain is decreased srm Signatures: Dispatcher [employer] EDLisette Pearson, KEVIN RN srm Candy Root, Reg Reg gb Odilno Lizama, Reg Reg lg Rodrigo Alba PA-C PA-C ar2 Cadence Milton RN RN ms18 Elisa Burns RN RN kc3 The chart was reviewed and I authenticate all verbal orders and agree with the evaluation and treatment provided.Attachments: 13:15 [facility] [place] lg 15:38 T-Sheet-- Draft Copy Chart Complete MTDD
== END 2016-04-23 14:20 | disposition home or self-care (01) ==
LOC: M ED 10:10
DX: R11.2 Nausea with vomiting, unspecified (principal); R19.7 Diarrhea, unspecified; J45.909 Unspecified asthma, uncomplicated; F33.9 Major depressive disorder, recurrent, unspecified; F41.9 Anxiety disorder, unspecified; Z79.3 Long term (current) use of hormonal contraceptives; Z79.899 Other long term (current) drug therapy
CPT/HCPCS: 36415; 76856; 80048; 80076; 81001; 82150; 83690; 84703; 85025; 93976; 96361; 96374; 96375; 99284; J1885; J2765

== ENCOUNTER 2016-04-27 16:07 | Emergency (ER) | payer OTHER ==
--- NOTE | 2016-04-27 16:52 | REP ---
Acute abdominal series three views including PA chest and supine upright abdomen: PA chest: Comparison is 02/16/2016. The lung broderick are clear. Cardiac size is normal. The marbin, mediastinum, and bony thorax are unremarkable. There is no free subdiaphragmatic air. Impression: Negative PA chest. There is no interval change. Abdomen, supine upright views: Comparison is the CT of the abdomen pelvis dated 04/22/2016. There is a metallic foreign body in the shape of a needle tip within the anterior abdominal soft tissues slightly to the left of midline as seen in AP and cross-table lateral projections. A similar needle tip foreign body is taped to the external surface of the right hip adjacent to the right radiographic film marker for comparison. Impression: Metallic foreign body in the anterior soft tissues of the abdomen. Signed by Joe Bruce MD 04/27/2016 04:43 P
--- NOTE | 2016-04-27 17:17 | EDDOCDS ---
Nurse's Notes [facility] Name: Renuka Bernard Age: 20 yrs Sex: Female : 1995 Arrival Date: 04/27/2016 Time: 16:07 Bed I4 / M4 Private MD: BRE Morton Diagnosis: Foreign body in alimentary tract Presentation: 04/27 16:15 Presenting complaint: Patient states: swallowed a tack. Patient states was holding tack hs1 in mouth and coughed and accidentally ingested tack. Patient states was caught in back of throat but then patient ate granola bar and swallowed tack reducing pain. Adult Sepsis Screening:. Adult Sepsis Screening: The patient does not have new or worsening altered mentation. Patient's respiratory rate is less than 22. Systolic blood pressure is greater than 100. Patient has a qSOFA score of 0- Negative Sepsis Screen. Suicide/Homicide risk assessment- the patient denies having any suicidal and/or homicidal ideations and does not present with any other emotional, behavioral or mental health complaints. Status: The patient is a dependent. Transition of care: patient was not received from another setting of care. 16:15 Acuity: PROSPER Level 4 hs1 16:15 Method Of Arrival: Walkin/Carried/Asstd hs1 Triage Assessment: 16:17 General: Appears in no apparent distress, Behavior is appropriate for age, cooperative. hs1 Pain: Denies pain. Pt Declines HIV testing. GI: Denies nausea, vomiting. BENCH EXAMINER: 16:18 LMP 04/24/2016 hs1 Historical: - Allergies: no known allergies; - Home Meds: 1. symbicort 2 puffs twice daily 2. Prozac 40 mg Oral cap 1 cap once daily 3. BCP Oral 1 tab nightly - PMHx: Anxiety; Asthma; Depression; - PSHx: none; - Social history: Smoking status: Patient states was never smoker of tobacco. No barriers to communication noted, The patient speaks fluent Barbadian, Speaks appropriately for age. - Family history: Not pertinent. - : The pt / caregiver states he / she is not on anticoagulants. Home medication list is obtained from the patient. - Exposure Risk Screening:: None identified. Screenin:34 Screening information is obtained from the patient. Fall risk: No risks identified. ck1 Assistance ADL's: requires no assistance with activities of daily living. Abuse/DV Screen: The patient / caregiver reports he/she is: not in a situation that causes fear, pain or injury. Nutritional screening: No deficits noted. Advance Directives: Currently, there is no health care proxy. home support is adequate. Assessment: 16:34 General: Appears in no apparent distress, comfortable, Behavior is appropriate for age, ck1 cooperative. Pain: Denies pain. Neurological: Level of Consciousness is awake, alert, obeys commands, Oriented to person, place, time. Respiratory: Respiratory effort is unlabored. GI: No deficits noted. Derm: Skin is pink, warm & dry. 17:15 General: Appears in no apparent distress, comfortable, Behavior is appropriate for age, ck1 cooperative. Pain: Denies pain. Neurological: No deficits noted. Respiratory: Respiratory effort is unlabored, Respiratory pattern is regular, symmetrical. GI: Denies nausea, vomiting. Derm: Skin is pink, warm & dry. Vital Signs: 16:09 BP 105 / 61; Pulse 97; Resp 16; Temp 99.2; Pulse Ox 99% ; Weight 77.11 kg; Height 5 ft. elp 5 in. (165.10 cm); 17:12 BP 116 / 74; Pulse 76; Resp 18; Temp 98.9; Pulse Ox 98% ; Pain 0/10; jam1 16:09 Body Mass Index 28.29 (77.11 kg, 165.10 cm) [facility] Vitals: 16:09 Log In Time: April 27, 2016 at 16:05. [facility] ED Course: 16:09 Patient visited by Olivia Bowman PCA. elp 16:09 Selene [facility] is Private Physician. elp 16:09 Patient moved to Waiting elp 16:10 Patient visited by Olivia Bowman PCA. elp 16:10 Patient moved to Pre RCE elp 16:17 Triage Initiated hs1 16:24 Patient moved to I4 / M4 dem1 16:25 [facility] Caban [facility] cc10 16:25 Santino Fabian DO is Attending Physician. cc10 16:25 Patient visited by Jasvir Caban PA-C. cc10 16:25 Patient visited by Jasvir Caban PA-C. cc10 16:34 The patient / caregiver is instructed regarding the plan of care and ED course. ck1 16:57 Patient visited by Darling Mckoy,RN. ck1 17:08 Selene [facility] is Referral Physician. cc10 17:08 Pt greeted and oriented to ED. Patient advised of names of staff involved in care, jam1 location of call [place], wait times and NPO status. Patient has correct armband on for positive identification. Placed in gown. Bed in low position. Call light in reach. Side rails up X 1. Door closed. 17:15 No IV's were initiated during this patient's visit. No procedures done that require ck1 assistance. Order Results: There are currently no results for this order. Outcome: 17:08 Discharge ordered by Provider. cc10 17:15 Discharge Assessment: Patient awake, alert and oriented x 3. No cognitive and/or ck1 functional deficits noted. Patient verbalized understanding of disposition instructions. patient administered narcotics - no. The following High Risk Discharge criteria are identified: None. Discharged to home ambulatory, with significant other. Condition: stable. Discharge instructions given to patient, Instructed on discharge instructions, follow up and referral plans. medication usage, Demonstrated understanding of instructions, medications, Pt was receptive of discharge instructions/ teaching. No special radiology studies were completed. Property :Personal belongings accompany Pt. 17:16 Patient left the ED. ck1 Signatures: Lamar Davis, INFRASTRUCTURE TECHNICIAN INFRASTRUCTURE TECHNICIAN jam1 Darling Mckoy,RN RN ck1 Radha Casarez RN RN hs1 Nancy Muñoz [facility]1 Olivia Bowman, INFRASTRUCTURE TECHNICIAN INFRASTRUCTURE TECHNICIAN deannp Jasvir Caban PAMaisha PAMarieC cc10 MTDD
--- NOTE | 2016-04-27 17:17 | EDDOCDS ---
Physician Documentation [facility] Name: Renuka Bernard Age: 20 yrs Sex: Female : 1995 Arrival Date: 04/27/2016 Time: 16:07 Bed I4 / M4 Private MD: BRE Morton Disposition: 04/27/16 17:08 Discharged to Home/Self Care. Impression: Foreign body in alimentary tract. - Condition is Stable. - Discharge Instructions: Swallowed Foreign Body, Adult. - Medication Reconciliation form. - Follow up: Emergency Department; When: As needed. Follow up: BRE Morton; When: 2 - 3 days; Reason: Wound/Symptom Recheck, Recheck today's complaints, Worsening of conditions, Continuance of care. - Problem is new. - Symptoms are unchanged. Historical: - Allergies: no known allergies; - Home Meds: 1. symbicort 2 puffs twice daily 2. Prozac 40 mg Oral cap 1 cap once daily 3. BCP Oral 1 tab nightly - PMHx: Anxiety; Asthma; Depression; - PSHx: none; - Social history: Smoking status: Patient states was never smoker of tobacco. No barriers to communication noted, The patient speaks fluent Mongolian, Speaks appropriately for age. - Family history: Not pertinent. - : The pt / caregiver states he / she is not on anticoagulants. Home medication list is obtained from the patient. - Exposure Risk Screening:: None identified. MECHANIC'S ASSISTANT: 04/27 16:18 LMP 04/24/2016 hs1 Vital Signs: 16:09 BP 105 / 61; Pulse 97; Resp 16; Temp 99.2; Pulse Ox 99% ; Weight 77.11 kg / 170 lbs; elp Height 5 ft. 5 in. (165.10 cm); 17:12 BP 116 / 74; Pulse 76; Resp 18; Temp 98.9; Pulse Ox 98% ; Pain 0/10; jam1 16:09 Body Mass Index 28.29 (77.11 kg, 165.10 cm) elp MDM: 16:23 NOTHING BY MOUTH+DIET ordered. EDMS 16:24 Abdomen, Flat\E\Upright,PA Chest Ordered. EDMS 16:33 Financial registration complete. ks16 16:53 CT ABD & PELVIS: No Contrast Ordered. EDMS Signatures: Dispatcher [employer] EDMS Hilary-Darling SextonRN RN ck1 Radha Casarez RN RN hs1 Jasvir Caban, CESIA CALLAWAY cc10 Thuy Ramirez, Reg Reg ks16 MTDD
--- NOTE | 2016-04-27 17:49 | REP ---
CT abdomen pelvis without IV or bowel contrast: There is a radiopaque foreign body in the mid transverse colon just to the left of midline. There is no pneumoperitoneum. There is no ascites. No bowel distension. There is bowel wall thickening of a short segment of colon distal to the foreign body involving the splenic flexure of the colon compatible with colitis. The visualized lung broderick are clear. The unenhanced hepatic parenchyma, pancreas and spleen are unremarkable. The gallbladder is collapsed and not well visualized. The unenhanced adrenals, kidneys and abdominal aorta are unremarkable. There is no bowel distension or obstruction. Pelvis: The appendix is unremarkable. The bladder, uterus and adnexa are unremarkable. There is no adenopathy or ascites. Impression: There is a foreign body in the mid transverse colon. No evidence of bowel perforation. Signed by Joe Bruce MD 04/27/2016 05:41 P
--- NOTE | 2016-04-29 18:17 | EDDOCDS ---
Physician Documentation [facility] Name: Renuka Bernard Age: 20 yrs Sex: Female : 1995 Arrival Date: 04/27/2016 Time: 16:07 Bed I4 / M4 Private MD: BRE Morton Disposition: 04/27/16 17:08 Discharged to Home/Self Care. Impression: Foreign body in alimentary tract. - Condition is Stable. - Discharge Instructions: Swallowed Foreign Body, Adult. - Medication Reconciliation form. - Follow up: Emergency Department; When: As needed. Follow up: BRE Morton; When: 2 - 3 days; Reason: Wound/Symptom Recheck, Recheck today's complaints, Worsening of conditions, Continuance of care. - Problem is new. - Symptoms are unchanged. Historical: - Allergies: no known allergies; - Home Meds: 1. symbicort 2 puffs twice daily 2. Prozac 40 mg Oral cap 1 cap once daily 3. BCP Oral 1 tab nightly - PMHx: Anxiety; Asthma; Depression; - PSHx: none; - Social history: Smoking status: Patient states was never smoker of tobacco. No barriers to communication noted, The patient speaks fluent Yakut, Speaks appropriately for age. - Family history: Not pertinent. - : The pt / caregiver states he / she is not on anticoagulants. Home medication list is obtained from the patient. - Exposure Risk Screening:: None identified. LABORER GENERAL: 04/27 16:18 LMP 04/24/2016 hs1 Vital Signs: 16:09 BP 105 / 61; Pulse 97; Resp 16; Temp 99.2; Pulse Ox 99% ; Weight 77.11 kg / 170 lbs; elp Height 5 ft. 5 in. (165.10 cm); 17:12 BP 116 / 74; Pulse 76; Resp 18; Temp 98.9; Pulse Ox 98% ; Pain 0/10; jam1 16:09 Body Mass Index 28.29 (77.11 kg, 165.10 cm) elp MDM: 16:23 NOTHING BY MOUTH+DIET ordered. EDMS 16:24 Abdomen, Flat\E\Upright,PA Chest Ordered. EDMS 16:33 Financial registration complete. ks16 16:53 CT ABD & PELVIS: No Contrast Ordered. EDMS 18:07 [facility] Payment Agreement was scanned into MED[employer] and attached to record. ks16 04/28 14:15 T-Sheet-- Draft Copy was scanned into MEDHOST and attached to record. gb Signatures: Dispatcher [employer] EDMS Candy Root, Reg Reg gb Hilary-Darling Sexton,RN RN ck1 Radha Casarez RN RN hs1 Jasvir Caban, PAMarieC PA-C cc10 Thuy Ramirez, Reg Reg ks16 The chart was reviewed and I authenticate all verbal orders and agree with the evaluation and treatment provided.Attachments: 04/27 18:07 [facility] Payment Agreement ks16 04/28 14:15 T-Sheet-- Draft Copy gb Chart Complete MTDD
--- NOTE | 2016-04-29 18:17 | EDDOCDS ---
Physician Documentation [facility] Name: Renuka Bernard Age: 20 yrs Sex: Female : 1995 Arrival Date: 04/27/2016 Time: 16:07 Bed I4 / M4 Private MD: BRE Morton Disposition: 04/27/16 17:08 Discharged to Home/Self Care. Impression: Foreign body in alimentary tract. - Condition is Stable. - Discharge Instructions: Swallowed Foreign Body, Adult. - Medication Reconciliation form. - Follow up: Emergency Department; When: As needed. Follow up: BRE Morton; When: 2 - 3 days; Reason: Wound/Symptom Recheck, Recheck today's complaints, Worsening of conditions, Continuance of care. - Problem is new. - Symptoms are unchanged. Historical: - Allergies: no known allergies; - Home Meds: 1. symbicort 2 puffs twice daily 2. Prozac 40 mg Oral cap 1 cap once daily 3. BCP Oral 1 tab nightly - PMHx: Anxiety; Asthma; Depression; - PSHx: none; - Social history: Smoking status: Patient states was never smoker of tobacco. No barriers to communication noted, The patient speaks fluent Icelandic, Speaks appropriately for age. - Family history: Not pertinent. - : The pt / caregiver states he / she is not on anticoagulants. Home medication list is obtained from the patient. - Exposure Risk Screening:: None identified. 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 5 in. (165.10 cm); 17:12 BP 116 / 74; Pulse 76; Resp 18; Temp 98.9; Pulse Ox 98% ; Pain 0/10; jam1 16:09 Body Mass Index 28.29 (77.11 kg, 165.10 cm) elp MDM: 16:23 NOTHING BY MOUTH+DIET ordered. EDMS 16:24 Abdomen, Flat\E\Upright,PA Chest Ordered. EDMS 16:33 Financial registration complete. ks16 16:53 CT ABD & PELVIS: No Contrast Ordered. EDMS 18:07 [facility] Payment Agreement was scanned into [employer] and attached to record. ks16 04/28 14:15 T-Sheet-- Draft Copy was scanned into [employer] and attached to record. gb Signatures: Dispatcher [employer] EDMS Candy Root, Reg Reg gb Hilary-Darling Sexton,RN RN ck1 Radha Casarez RN RN hs1 Jasvir Caban, PAMarieC PA-C cc10 Thuy Ramirez, Reg Reg ks16 The chart was reviewed and I authenticate all verbal orders and agree with the evaluation and treatment provided.Attachments: 04/27 18:07 [facility] Payment Agreement ks16 04/28 14:15 T-Sheet-- Draft Copy gb Chart Complete MTDD
--- NOTE | 2016-04-29 18:17 | EDDOCDS ---
Nurse's Notes [facility] Name: Renuka Bernard Age: 20 yrs Sex: Female : 1995 Arrival Date: 04/27/2016 Time: 16:07 Bed I4 / M4 Private MD: BRE Morton Diagnosis: Foreign body in alimentary tract Presentation: 04/27 16:15 Presenting complaint: Patient states: swallowed a tack. Patient states was holding tack hs1 in mouth and coughed and accidentally ingested tack. Patient states was caught in back of throat but then patient ate granola bar and swallowed tack reducing pain. Adult Sepsis Screening:. Adult Sepsis Screening: The patient does not have new or worsening altered mentation. Patient's respiratory rate is less than 22. Systolic blood pressure is greater than 100. Patient has a qSOFA score of 0- Negative Sepsis Screen. Suicide/Homicide risk assessment- the patient denies having any suicidal and/or homicidal ideations and does not present with any other emotional, behavioral or mental health complaints. Status: The patient is a dependent. Transition of care: patient was not received from another setting of care. 16:15 Acuity: PROSPER Level 4 hs1 16:15 Method Of Arrival: Walkin/Carried/Asstd hs1 Triage Assessment: 16:17 General: Appears in no apparent distress, Behavior is appropriate for age, cooperative. hs1 Pain: Denies pain. Pt Declines HIV testing. GI: Denies nausea, vomiting. 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 symbicort 2 puffs twice daily 2. Prozac 40 mg Oral cap 1 cap once daily 3. BCP Oral 1 tab nightly - PMHx: Anxiety; Asthma; Depression; - PSHx: none; - Social history: Smoking status: Patient states was never smoker of tobacco. No barriers to communication noted, The patient speaks fluent Kuwaiti, Speaks appropriately for age. - Family history: Not pertinent. - : The pt / caregiver states he / she is not on anticoagulants. Home medication list is obtained from the patient. - Exposure Risk Screening:: None identified. Screenin:34 Screening information is obtained from the patient. Fall risk: No risks identified. ck1 Assistance ADL's: requires no assistance with activities of daily living. Abuse/DV Screen: The patient / caregiver reports he/she is: not in a situation that causes fear, pain or injury. Nutritional screening: No deficits noted. Advance Directives: Currently, there is no health care proxy. home support is adequate. Assessment: 16:34 General: Appears in no apparent distress, comfortable, Behavior is appropriate for age, ck1 cooperative. Pain: Denies pain. Neurological: Level of Consciousness is awake, alert, obeys commands, Oriented to person, place, time. Respiratory: Respiratory effort is unlabored. GI: No deficits noted. Derm: Skin is pink, warm & dry. 17:15 General: Appears in no apparent distress, comfortable, Behavior is appropriate for age, ck1 cooperative. Pain: Denies pain. Neurological: No deficits noted. Respiratory: Respiratory effort is unlabored, Respiratory pattern is regular, symmetrical. GI: Denies nausea, vomiting. Derm: Skin is pink, warm & dry. Vital Signs: 16:09 BP 105 / 61; Pulse 97; Resp 16; Temp 99.2; Pulse Ox 99% ; Weight 77.11 kg; Height 5 ft. elp 5 in. (165.10 cm); 17:12 BP 116 / 74; Pulse 76; Resp 18; Temp 98.9; Pulse Ox 98% ; Pain 0/10; jam1 16:09 Body Mass Index 28.29 (77.11 kg, 165.10 cm) [facility] Vitals: 16:09 Log In Time: April 27, 2016 at 16:05. [facility] ED Course: 16:09 Patient visited by Olivia Bowman PCA. elp 16:09 [facility] [place] Private Physician. elp 16:09 Patient moved to Waiting elp 16:10 Patient visited by Olivia Bowman PCA. elp 16:10 Patient moved to Pre RCE elp 16:17 Triage Initiated hs1 16:24 Patient moved to I4 / M4 dem1 16:25 Jas[facility] Cab[facility] cc10 16:25 Santino Fabian DO is Attending Physician. cc10 16:25 Patient visited by Jasvir Caban PA-C. cc10 16:25 Patient visited by Jasvir Caban PA-C. cc10 16:34 The patient / caregiver is instructed regarding the plan of care and ED course. ck1 16:57 Patient visited by Darling Mckoy RN. ck1 17:08 Selene [facility] [place] Referral Physician. cc10 17:08 Pt greeted and oriented to ED. Patient advised of names of staff involved in care, jam1 location of call [place], wait times and NPO status. Patient has correct armband on for positive identification. Placed in gown. Bed in low position. Call light in reach. Side rails up X 1. Door closed. 17:15 No IV's were initiated during this patient's visit. No procedures done that require ck1 assistance. 17:20 Abdomen, Flat\E\Upright,PA Chest Returned. EDMS 18:07 [facility] Payment Agreement was scanned into [employer] and attached to record. ks16 18:14 CT ABD & PELVIS: No Contrast Returned. EDMS 0208 14:15 T-Sheet-- Draft Copy was scanned into [employer] and attached to record. gb Order Results: Radiology Order: Abdomen, Flat\E\Upright,PA Chest Test: Abdomen, Flat\E\Upright,PA Chest REASON FOR EXAMINATION: fb; Acute abdominal series three views including PA chest and supine upright; abdomen:; ; PA chest:; ; Comparison is 02/16/2016.; ; The lung broderick are clear. Cardiac size is normal. The marbin, mediastinum, and; bony thorax are unremarkable. There is no free subdiaphragmatic air.; ; Impression: Negative PA chest. There is no interval change.; ; Abdomen, supine upright views:; ; Comparison is the CT of the abdomen pelvis dated 04/22/2016.; ; There is a metallic foreign body in the shape of a needle tip within the anterior; abdominal soft tissues slightly to the left of midline as seen in AP and; cross-table lateral projections.; ; A similar needle tip foreign body is taped to the external surface of the right; hip adjacent to the right radiographic film marker for comparison.; ; Impression: Metallic foreign body in the anterior soft tissues of the abdomen.; ; ; Signed by; Joe Bruce MD 04/27/2016 04:43 P; Radiology Order: CT ABD & PELVIS: No Contrast Test: CT ABD & PELVIS: No Contrast REASON FOR EXAMINATION: FB; CT abdomen pelvis without IV or bowel contrast:; ; There is a radiopaque foreign body in the mid transverse colon just to the left; of midline. There is no pneumoperitoneum. There is no ascites. No bowel; distension. There is bowel wall thickening of a short segment of colon distal to; the foreign body involving the splenic flexure of the colon compatible with; colitis.; ; The visualized lung broderick are clear. The unenhanced hepatic parenchyma,; pancreas and spleen are unremarkable. The gallbladder is collapsed and not well; visualized.; ; The unenhanced adrenals, kidneys and abdominal aorta are unremarkable.; ; There is no bowel distension or obstruction.; ; Pelvis:; ; The appendix is unremarkable. The bladder, uterus and adnexa are unremarkable.; There is no adenopathy or ascites.; ; Impression:; ; There is a foreign body in the mid transverse colon. No evidence of bowel; perforation.; ; ; Signed by; Joe Bruce MD 04/27/2016 05:41 P; Outcome: 04/27 17:08 Discharge ordered by Provider. cc 17:15 Discharge Assessment: Patient awake, alert and oriented x 3. No cognitive and/or ck1 functional deficits noted. Patient verbalized understanding of disposition instructions. patient administered narcotics - no. The following High Risk Discharge criteria are identified: None. Discharged to home ambulatory, with significant other. Condition: stable. Discharge instructions given to patient, Instructed on discharge instructions, follow up and referral plans. medication usage, Demonstrated understanding of instructions, medications, Pt was receptive of discharge instructions/ teaching. No special radiology studies were completed. Property :Personal belongings accompany Pt. 17:16 Patient left the ED. ck1 Signatures: Dispatcher [employer] EDMS Lamar Davis, HELICOPTER PILOT HELICOPTER PILOT jam1 Candy Root, Reg Reg gb Darling MckoyRN RN ck1 Radha Casarez RN RN hs1 Nancy Muñoz dem1 Olivia Bowman, HELICOPTER PILOT HELICOPTER PILOT deannp Jasvir Caban PA-C PAMarieC cc10 Thuy Ramirez, Reg Reg ks16 Chart Complete MTDD
== END 2016-04-27 17:16 | disposition home or self-care (01) ==
LOC: M ED 16:07
DX: T18.9XXA Foreign body of alimentary tract, part unspecified, initial encounter (principal); X58.XXXA Exposure to other specified factors, initial encounter; Y92.89 Other specified places as the place of occurrence of the external cause; Y93.89 Activity, other specified; Y99.8 Other external cause status; F90.9 Attention-deficit hyperactivity disorder, unspecified type; J45.909 Unspecified asthma, uncomplicated; F32.9 Major depressive disorder, single episode, unspecified; Z79.3 Long term (current) use of hormonal contraceptives; Z79.899 Other long term (current) drug therapy

== ENCOUNTER 2016-04-27 18:24 | Emergency (ER) | payer OTHER ==
[2016-04-27] MEDS ORDERED: NORCO 5/325MG TABLET (BULK) As Ordered ONE (21:31)
--- NOTE | 2016-04-27 21:44 | EDDOCDS ---
Physician Documentation [facility] Name: Renuka Bernard Age: 20 yrs Sex: Female : 1995 Arrival Date: 04/27/2016 Time: 18:24 Bed 12 Private MD: Selene [facility] Disposition: 04/27 21:07 Critical Care: Critical care not applicable. pc Disposition: 04/27/16 21:10 Discharged to Home/Self Care. Impression: Foreign body in colon - now in distal left colon, without perforation . - Condition is Stable. - Discharge Instructions: Swallowed Foreign Body, Adult. - Prescriptions for Colace 100 mg Oral Tablet - take 1 tablet by ORAL route every 12 hours; 14 tablet. - Medication Reconciliation, Local Pharmacy Hours form. - [facility] up: [facility]; When: Call to arrange an appointment; Reason: Continuance of care. - Problem is an ongoing problem. - Symptoms are unchanged. - Notes: The push pin has advanced to the lower left colon and should likely be passed with the next bowel movement. You may see blood streaking which is to be expected and not a need for emergent attention. You are encouraged to drink copious amounts of fluids. HPI: 20:17 This 20 yrs old Female presents to ER via Walkin/Carried/Asstd with pc complaints of Vomiting. 20:17 The history is obtained from the patient, the patient's spouse. She has had abdominal pc pain for 5-6 days, with ED visits for the same, all investigation normal. She reportedly swallowed a tack early today, for which she was seen here and confirmed by Xray to be in the transverse colon and no perforation noted on CT. She was discharged just 2 hours ago and returns saying her pain increased and she vomited without blood noted. She did not take any Zofran as prescribed a few days ago. She is laughing as I enter her room for the interview. Historical: - Allergies: no known allergies; - Home Meds: 1. BCP Oral 1 tab nightly 2. Prozac 40 mg Oral cap 1 cap once daily 3. symbicort 2 puffs twice daily 4. Zofran ODT 4mg - PMHx: Anxiety; Asthma; Depression; - PSHx: none; - The history from nurses notes was reviewed: and I agree with what is documented. - Social history: Smoking status: Patient states was never smoker of tobacco. No barriers to communication noted, The patient speaks fluent Tongan, Speaks appropriately for age, Preferred Language: Tongan. - Family history: Not pertinent. - : The pt / caregiver states he / she is not on anticoagulants. Home medication list is obtained from the patient. - Hospitalizations: : No recent hospitalization is reported. - Exposure Risk Screening:: None identified. - Immunization history:: All immunizations up-to-date. - Social history:: the patient is a non-smoker, the patient does not drink alcohol. ROS: 20:23 All systems are negative except as listed. pc Exam: 20:23 General Appearance: no acute distress, alert. pc 20:23 Respiratory: no respiratory distress, normal breath sounds. 20:23 CVS: regular pulse rate, regular rhythm, normal S1 and S2, no murmurs, strong peripheral pulses. 20:23 Abdomen: soft, non-tender, no organomegaly, normal bowel sounds. Vital Signs: 18:25 BP 120 / 71; Pulse 87; Resp 16; Temp 99.6(O); Pulse Ox 97% ; Weight 77.11 kg / 170 lbs elp (R); Height 5 ft. 5 in. (165.10 cm) (R); Pain 5/10; 21:42 BP 114 / 52; Pulse 74; Resp 18; Temp 98.0(O); Pulse Ox 100% on R/A; Pain 7/10; tm5 18:25 Body Mass Index 28.29 (77.11 kg, 165.10 cm) elp MDM: 20:19 Abdomen, Flat\E\Upright,PA Chest Ordered. EDMS 20:23 Differential Diagnosis: episode of pain and vomiting resolved, with known colonic FB. pc Plan: xray, advice. 21:07 Data reviewed: old medical records, vital signs, nurses notes, all radiology studies pc and available results. Test interpretation: X-RAY - interpreted by me, 3-view abdomen series; metallic FB now in distal left colon, moved form transverse colon on prior films earlier today, without free air. The patient has been re-examined and re-evaluated. The patient's symptoms have mildly improved after treatment. Disposition: The historical points, examination findings, and any diagnostic results supporting the provided diagnosis, were discussed with the patient or legal guardian. The need for outpatient follow up with the provider listed on their discharge instructions was discussed. They were encouraged to return to [facility], or the nearest ED, if symptoms worsen/persist, or for any other questions/concerns. 21:12 HYDROcodone-acetaminophen 4 pack- 5 mg-325 mg 1 packets PO Per package directions; pc Dispense with patient. 1 po q4h prn for pain ordered. Administered Medications: 21:41 Drug: HYDROcodone-acetaminophen 4 pack- 1 packets [hydrocodone 5 mg-acetaminophen 325 tm5 mg tablet (1 tabs)] {Co-Signature: af2 (Trinh Maya RN).} Route: PO; 21:42 Follow up: Response: Med's dispensed home tm5 Signatures: Dispatcher [employer] EDBlair Alaniz MD MD pc Sherrill, Hannah, RN RN hs1 Jaimie Moreno RN RN tm5 Trinh Maya RN af2 CARMELLA
--- NOTE | 2016-04-27 21:44 | EDDOCDS ---
Nurse's Notes [facility] Name: Renuka Bernard Age: 20 yrs Sex: Female : 1995 Arrival Date: 04/27/2016 Time: 18:24 Bed 12 Private MD: BRE Morton Diagnosis: Foreign body in colon-now in distal left colon, without perforation Presentation: 04/27 18:33 Presenting complaint: Patient states: severe pain now in abdomen and has been throwing hs1 up x2. Patient told to return if those things happened as patient swallowed tack. Adult Sepsis Screening: The patient does not have new or worsening altered mentation. Patient's respiratory rate is less than 22. Systolic blood pressure is greater than 100. Patient has a qSOFA score of 0- Negative Sepsis Screen. Suicide/Homicide risk assessment- the patient denies having any suicidal and/or homicidal ideations and does not present with any other emotional, behavioral or mental health complaints. Status: The patient is a dependent. Transition of care: patient was not received from another setting of care. 18:33 Acuity: PROSPER Level 3 hs1 18:33 Method Of Arrival: Walkin/Carried/Asstd hs1 Triage Assessment: 18:35 General: Appears in no apparent distress, Behavior is appropriate for age, cooperative. hs1 Pain: Location: abdomen Pain currently is 5 out of 10 on a pain scale. HIV screening NA for this visit Offered previously. Respiratory: No deficits noted. GI: Reports vomiting. Historical: - Allergies: no known allergies; - Home Meds: 1. BCP Oral 1 tab nightly 2. Prozac 40 mg Oral cap 1 cap once daily 3. symbicort 2 puffs twice daily 4. Zofran ODT 4mg - PMHx: Anxiety; Asthma; Depression; - PSHx: none; - The history from nurses notes was reviewed: and I agree with what is documented. - Social history: Smoking status: Patient states was never smoker of tobacco. No barriers to communication noted, The patient speaks fluent Salvadorean, Speaks appropriately for age, Preferred Language: Salvadorean. - Family history: Not pertinent. - : The pt / caregiver states he / she is not on anticoagulants. Home medication list is obtained from the patient. - Hospitalizations: : No recent hospitalization is reported. - Exposure Risk Screening:: None identified. - Immunization history:: All immunizations up-to-date. - Social history:: the patient is a non-smoker, the patient does not drink alcohol. Screenin:03 Screening information is obtained from the patient. Fall risk: No risks identified. tm5 Assistance ADL's: requires no assistance with activities of daily living. Abuse/DV Screen: The patient / caregiver reports he/she is: not in a situation that causes fear, pain or injury. Nutritional screening: No deficits noted. Advance Directives: There is no active DNR order. home support is adequate. Assessment: 20:03 General: Appears in no apparent distress, Behavior is appropriate for age, cooperative. tm5 Pain: Location: right upper quadrant and left upper quadrant Pain currently is 5 out of 10 on a pain scale. Quality of pain is described as aching, crampy. Neurological: Level of Consciousness is awake, alert, Oriented to person, place, time. Respiratory: Airway is patent Respiratory effort is even, unlabored, Respiratory pattern is regular, symmetrical, Breath sounds are clear bilaterally. GI: Abdomen is non- distended Bowel sounds present X 4 quads. Abd is soft X 4 quads Abd is tender to palpation in right upper quadrant and left upper quadrant Reports upper abd pain, nausea, vomiting. : No deficits noted. Derm: Skin is pink, warm & dry. normal. 20:38 General: called to pt's room by pt, she complains of a sudden onset of abdominal pain, tm5 MD aware, pt still awaiting X-ray to be done, no new orders at this time. 21:42 Reassessment: Patient appears in no apparent distress at this time. Patient states tm5 feeling better. Patient states symptoms have improved. Vital Signs: 18:25 BP 120 / 71; Pulse 87; Resp 16; Temp 99.6(O); Pulse Ox 97% ; Weight 77.11 kg (R); elp Height 5 ft. 5 in. (165.10 cm) (R); Pain 5/10; 21:42 BP 114 / 52; Pulse 74; Resp 18; Temp 98.0(O); Pulse Ox 100% on R/A; Pain 7/10; tm5 18:25 Body Mass Index 28.29 (77.11 kg, 165.10 cm) elp Vitals: 18:25 Log In Time: April 27, 2016 at 18:23. elp ED Course: 18:25 Patient visited by Olivia Bowman PCA. elp 18:25 Selene [facility] is Private Physician. elp 18:25 Patient moved to Waiting elp 18:27 Patient visited by Olivia Bowman PCA. elp 18:27 Patient moved to Pre RCE elp 18:34 Triage Initiated hs1 19:46 Patient moved to 12 dsf 20:03 Patient visited by Jaimie Moreno,KEVIN. tm5 20:03 The patient / caregiver is instructed regarding the plan of care and ED course. Family tm5 accompanied patient. 20:03 Inserted saline lock: 20 gauge in right forearm and blood collected. The patient tm5 tolerated the procedure well. Labs drawn. (by ED staff). Held in ED. 20:05 Awaiting ED physician evaluation. tm5 20:13 Blair Laguerre MD is Attending Physician. pc 20:17 Patient visited by Blair Laguerre MD. pc 20:38 Patient visited by Jaimie Moreno,KEVIN. tm5 21:[facility] pc 21:41 Patient visited by Jaimie Moreno RN. tm5 21:42 Discontinued lock intact, bleeding controlled, pressure dressing applied, No tm5 redness/swelling at site. No procedures done that require assistance. Administered Medications: 21:41 Drug: HYDROcodone-acetaminophen 4 pack- 1 packets [hydrocodone 5 mg-acetaminophen 325 tm5 mg tablet (1 tabs)] {Co-Signature: af2 (Trinh Maya RN).} Route: PO; 21:42 Follow up: Response: Med's dispensed home tm5 Order Results: There are currently no results for this order. Outcome: 21:10 Discharge ordered by Provider. pc 21:42 Discharge Assessment: Patient awake, alert and oriented x 3. No cognitive and/or tm5 functional deficits noted. Patient verbalized understanding of disposition instructions. patient administered narcotics - no. The following High Risk Discharge criteria are identified: None. Discharged to home ambulatory, with significant other. Condition: good Condition: stable. Discharge instructions given to patient, Instructed on discharge instructions, follow up and referral plans. medication usage, no driving heavy equipment, Demonstrated understanding of instructions, medications, Pt was receptive of discharge instructions/ teaching. Prescriptions given X 1. No special radiology studies were completed. Property :Personal belongings accompany Pt. 21:44 Patient left the ED. tm5 Signatures: Blair Laguerre MD MD pc Sherrill, Hannah RN RN hs1 Ingris GuerraRN RN dsf Olivia Bowman PCA PCA elp Matice, Tonya, RN RN tm5 Trinh Maya RN af2 MTDD
--- NOTE | 2016-04-28 02:44 | REP ---
Clinical: Foreign body. Rule out perforation. Technique: Upright view of the chest with supine and upright views of the abdomen and pelvis. Findings: Frontal upright view of the chest demonstrates no acute cardiopulmonary process or free air below the diaphragm to suspect pneumoperitoneum. Supine and upright views of the abdomen and pelvis demonstrate nonspecific bowel gas pattern without obstruction or perforation. Thin, needle-like foreign body identified in the left liza pelvis likely within the sigmoid colon or small bowel. No organomegaly. No abnormal calcifications. Skeletal structures normal for age. Impression: Foreign body identified within the left liza pelvis. Nonspecific bowel gas pattern. No evidence for perforation. Signed by Cornelius Felipe MD 04/28/2016 02:35 A
--- NOTE | 2016-04-29 22:44 | EDDOCDS ---
Nurse's Notes [facility] Name: Renuka Bernard Age: 20 yrs Sex: Female : 1995 Arrival Date: 04/27/2016 Time: 18:24 Bed 12 Private MD: BRE Morton Diagnosis: Foreign body in colon-now in distal left colon, without perforation Presentation: 04/27 18:33 Presenting complaint: Patient states: severe pain now in abdomen and has been throwing hs1 up x2. Patient told to return if those things happened as patient swallowed tack. Adult Sepsis Screening: The patient does not have new or worsening altered mentation. Patient's respiratory rate is less than 22. Systolic blood pressure is greater than 100. Patient has a qSOFA score of 0- Negative Sepsis Screen. Suicide/Homicide risk assessment- the patient denies having any suicidal and/or homicidal ideations and does not present with any other emotional, behavioral or mental health complaints. Status: The patient is a dependent. Transition of care: patient was not received from another setting of care. 18:33 Acuity: PROSPER Level 3 hs1 18:33 Method Of Arrival: Walkin/Carried/Asstd hs1 Triage Assessment: 18:35 General: Appears in no apparent distress, Behavior is appropriate for age, cooperative. hs1 Pain: Location: abdomen Pain currently is 5 out of 10 on a pain scale. HIV screening NA for this visit Offered previously. Respiratory: No deficits noted. GI: Reports vomiting. Historical: - Allergies: no known allergies; - Home Meds: 1. BCP Oral 1 tab nightly 2. Prozac 40 mg Oral cap 1 cap once daily 3. symbicort 2 puffs twice daily 4. Zofran ODT 4mg - PMHx: Anxiety; Asthma; Depression; - PSHx: none; - The history from nurses notes was reviewed: and I agree with what is documented. - Social history: Smoking status: Patient states was never smoker of tobacco. No barriers to communication noted, The patient speaks fluent Malaysian, Speaks appropriately for age, Preferred Language: Malaysian. - Family history: Not pertinent. - : The pt / caregiver states he / she is not on anticoagulants. Home medication list is obtained from the patient. - Hospitalizations: : No recent hospitalization is reported. - Exposure Risk Screening:: None identified. - Immunization history:: All immunizations up-to-date. - Social history:: the patient is a non-smoker, the patient does not drink alcohol. Screenin:03 Screening information is obtained from the patient. Fall risk: No risks identified. tm5 Assistance ADL's: requires no assistance with activities of daily living. Abuse/DV Screen: The patient / caregiver reports he/she is: not in a situation that causes fear, pain or injury. Nutritional screening: No deficits noted. Advance Directives: There is no active DNR order. home support is adequate. Assessment: 20:03 General: Appears in no apparent distress, Behavior is appropriate for age, cooperative. tm5 Pain: Location: right upper quadrant and left upper quadrant Pain currently is 5 out of 10 on a pain scale. Quality of pain is described as aching, crampy. Neurological: Level of Consciousness is awake, alert, Oriented to person, place, time. Respiratory: Airway is patent Respiratory effort is even, unlabored, Respiratory pattern is regular, symmetrical, Breath sounds are clear bilaterally. GI: Abdomen is non- distended Bowel sounds present X 4 quads. Abd is soft X 4 quads Abd is tender to palpation in right upper quadrant and left upper quadrant Reports upper abd pain, nausea, vomiting. : No deficits noted. Derm: Skin is pink, warm & dry. normal. 20:38 General: called to pt's room by pt, she complains of a sudden onset of abdominal pain, tm5 MD aware, pt still awaiting X-ray to be done, no new orders at this time. 21:42 Reassessment: Patient appears in no apparent distress at this time. Patient states tm5 feeling better. Patient states symptoms have improved. Vital Signs: 18:25 BP 120 / 71; Pulse 87; Resp 16; Temp 99.6(O); Pulse Ox 97% ; Weight 77.11 kg (R); elp Height 5 ft. 5 in. (165.10 cm) (R); Pain 5/10; 21:42 BP 114 / 52; Pulse 74; Resp 18; Temp 98.0(O); Pulse Ox 100% on R/A; Pain 7/10; tm5 18:25 Body Mass Index 28.29 (77.11 kg, 165.10 cm) elp Vitals: 18:25 Log In Time: April 27, 2016 at 18:23. elp ED Course: 18:25 Patient visited by Olivia Bowman PCA. elp 18:25 Selene [facility] is Private Physician. elp 18:25 Patient moved to Waiting elp 18:27 Patient visited by Olivia Bowman PCA. elp 18:27 Patient moved to Pre RCE elp 18:34 Triage Initiated hs1 19:46 Patient moved to 12 dsf 20:03 Patient visited by Jaimie Moreno,KEVIN. tm5 20:03 The patient / caregiver is instructed regarding the plan of care and ED course. Family tm5 accompanied patient. 20:03 Inserted saline lock: 20 gauge in right forearm and blood collected. The patient tm5 tolerated the procedure well. Labs drawn. (by ED staff). Held in ED. 20:05 Awaiting ED physician evaluation. tm5 20:13 Blair Laguerre MD is Attending Physician. pc 20:17 Patient visited by Blair Laguerre MD. pc 20:38 Patient visited by Jaimie Moreno,KEVIN. tm5 21:09 [facility] pc 21:41 Patient visited by Jaimie Moreno RN. tm5 21:42 Discontinued lock intact, bleeding controlled, pressure dressing applied, No tm5 redness/swelling at site. No procedures done that require assistance. 22:09 [facility] Payment Agreement was scanned into [employer] and attached to record. zo 04/28 03:20 Abdomen, Flat\E\Upright,PA Chest Returned. EDMS Administered Medications: 04/27 21:41 Drug: HYDROcodone-acetaminophen 4 pack- 1 packets [hydrocodone 5 mg-acetaminophen 325 tm5 mg tablet (1 tabs)] {Co-Signature: af2 (Trinh Maya RN).} Route: PO; 21:42 Follow up: Response: Med's dispensed home tm5 Order Results: Radiology Order: Abdomen, Flat\E\Upright,PA Chest Test: Abdomen, Flat\E\Upright,PA Chest REASON FOR EXAMINATION: r/o perforation; Clinical: Foreign body. Rule out perforation.; ; Technique: Upright view of the chest with supine and upright views of the; abdomen and pelvis.; ; Findings: Frontal upright view of the chest demonstrates no acute; cardiopulmonary process or free air below the diaphragm to suspect; pneumoperitoneum. Supine and upright views of the abdomen and pelvis demonstrate; nonspecific bowel gas pattern without obstruction or perforation. Thin,; needle-like foreign body identified in the left liza pelvis likely within the; sigmoid colon or small bowel. No organomegaly. No abnormal calcifications.; Skeletal structures normal for age.; ; Impression:; Foreign body identified within the left liza pelvis.; Nonspecific bowel gas pattern.; No evidence for perforation.; ; ; Signed by; Cornelius Felipe MD 04/28/2016 02:35 A; Outcome: 21:10 Discharge ordered by Provider. pc 21:42 Discharge Assessment: Patient awake, alert and oriented x 3. No cognitive and/or tm5 functional deficits noted. Patient verbalized understanding of disposition instructions. patient administered narcotics - no. The following High Risk Discharge criteria are identified: None. Discharged to home ambulatory, with significant other. Condition: good Condition: stable. Discharge instructions given to patient, Instructed on discharge instructions, follow up and referral plans. medication usage, no driving heavy equipment, Demonstrated understanding of instructions, medications, Pt was receptive of discharge instructions/ teaching. Prescriptions given X 1. No special radiology studies were completed. Property :Personal belongings accompany Pt. 21:44 Patient left the ED. tm5 Signatures: Dispatcher [employer] EDMS Blair Laguerre MD MD pc Olin, Zoeann zo Sherrill, Hannah, KEVIN RN hs1 Ingris GuerraRN RN dsf Olivia Bowman, DESIGN LEAD DESIGN LEAD Jaimie Kelley RN RN tm5 Trinh Maya RN af2 Chart Complete MTDD
--- NOTE | 2016-04-29 22:44 | EDDOCDS ---
Physician Documentation [facility] Name: Renuka Bernard Age: 20 yrs Sex: Female : 1995 Arrival Date: 04/27/2016 Time: 18:24 Bed 12 Private MD: [place] [facility] [place]position: 04/27 21:07 Critical Care: Critical care not applicable. pc Disposition: 04/27/16 21:10 Discharged to Home/Self Care. Impression: Foreign body in colon - now in distal left colon, without perforation . - Condition is Stable. - Discharge Instructions: Swallowed Foreign Body, Adult. - Prescriptions for Colace 100 mg Oral Tablet - take 1 tablet by ORAL route every 12 hours; 14 tablet. - Medication Reconciliation, Local Pharmacy Hours form. - Follow up: Frederic Marquez [facility] [place]; When: Call to arrange an appointment; Reason: Continuance of care. - Problem is an ongoing problem. - Symptoms are unchanged. - Notes: The push pin has advanced to the lower left colon and should likely be passed with the next bowel movement. You may see blood streaking which is to be expected and not a need for emergent attention. You are encouraged to drink copious amounts of fluids. HPI: 20:17 This 20 yrs old Female presents to ER via Walkin/Carried/Asstd with pc complaints of Vomiting. 20:17 The history is obtained from the patient, the patient's spouse. She has had abdominal pc pain for 5-6 days, with ED visits for the same, all investigation normal. She reportedly swallowed a tack early today, for which she was seen here and confirmed by Xray to be in the transverse colon and no perforation noted on CT. She was discharged just 2 hours ago and returns saying her pain increased and she vomited without blood noted. She did not take any Zofran as prescribed a few days ago. She is laughing as I enter her room for the interview. Historical: - Allergies: no known allergies; - Home Meds: 1. BCP Oral 1 tab nightly 2. Prozac 40 mg Oral cap 1 cap once daily 3. symbicort 2 puffs twice daily 4. Zofran ODT 4mg - PMHx: Anxiety; Asthma; Depression; - PSHx: none; - The history from nurses notes was reviewed: and I agree with what is documented. - Social history: Smoking status: Patient states was never smoker of tobacco. No barriers to communication noted, The patient speaks fluent Congolese, Speaks appropriately for age, Preferred Language: Congolese. - Family history: Not pertinent. - : The pt / caregiver states he / she is not on anticoagulants. Home medication list is obtained from the patient. - Hospitalizations: : No recent hospitalization is reported. - Exposure Risk Screening:: None identified. - Immunization history:: All immunizations up-to-date. - Social history:: the patient is a non-smoker, the patient does not drink alcohol. ROS: 20:23 All systems are negative except as listed. pc Exam: 20:23 General Appearance: no acute distress, alert. pc 20:23 Respiratory: no respiratory distress, normal breath sounds. 20:23 CVS: regular pulse rate, regular rhythm, normal S1 and S2, no murmurs, strong peripheral pulses. 20:23 Abdomen: soft, non-tender, no organomegaly, normal bowel sounds. Vital Signs: 18:25 BP 120 / 71; Pulse 87; Resp 16; Temp 99.6(O); Pulse Ox 97% ; Weight 77.11 kg / 170 lbs elp (R); Height 5 ft. 5 in. (165.10 cm) (R); Pain 5/10; 21:42 BP 114 / 52; Pulse 74; Resp 18; Temp 98.0(O); Pulse Ox 100% on R/A; Pain 7/10; tm5 18:25 Body Mass Index 28.29 (77.11 kg, 165.10 cm) elp MDM: 20:19 Abdomen, Flat\E\Upright,PA Chest Ordered. EDMS 20:23 Differential Diagnosis: episode of pain and vomiting resolved, with known colonic FB. pc Plan: xray, advice. 21:07 Data reviewed: old medical records, vital signs, nurses notes, all radiology studies pc and available results. Test interpretation: X-RAY - interpreted by me, 3-view abdomen series; metallic FB now in distal left colon, moved form transverse colon on prior films earlier today, without free air. The patient has been re-examined and re-evaluated. The patient's symptoms have mildly improved after treatment. Disposition: The historical points, examination findings, and any diagnostic results supporting the provided diagnosis, were discussed with the patient or legal guardian. The need for outpatient follow up with the provider listed on their discharge instructions was discussed. They were encouraged to return to [facility], or the nearest ED, if symptoms worsen/persist, or for any other questions/concerns. 21:12 HYDROcodone-acetaminophen 4 pack- 5 mg-325 mg 1 packets PO Per package directions; pc Dispense with patient. 1 po q4h prn for pain ordered. 22:09 ON LICENSE OF [facility] Payment Agreement was scanned into [employer] and attached to record. zo 22: Financial registration complete. zo Administered Medications: 21:41 Drug: HYDROcodone-acetaminophen 4 pack- 1 packets [hydrocodone 5 mg-acetaminophen 325 tm5 mg tablet (1 tabs)] {Co-Signature: af2 (Trinh Maya RN).} Route: PO; 21:42 Follow up: Response: Med's dispensed home tm5 Signatures: Dispatcher [employer] EDMS Blair Laguerre MD MD pc Olin, Zoeann zo Sherrill, Hannah, RN RN hs1 Jaimie Moreno RN RN tm5 Trinh Maya RN af2 The chart was reviewed and I authenticate all verbal orders and agree with the evaluation and treatment provided.Attachments: 22:09 ON LICENSE OF [facility] Payment Agreement zo Chart Complete MTDD
--- NOTE | 2016-04-29 22:44 | EDDOCDS ---
Physician Documentation [facility] Name: Renuka Bernard Age: 20 yrs Sex: Female : 1995 Arrival Date: 04/27/2016 Time: 18:24 Bed 12 Private MD: Sel[facility] Disposition: 04/27 21:07 Critical Care: Critical care not applicable. pc Disposition: 04/27/16 21:10 Discharged to Home/Self Care. Impression: Foreign body in colon - now in distal left colon, without perforation . - Condition is Stable. - Discharge Instructions: Swallowed Foreign Body, Adult. - Prescriptions for Colace 100 mg Oral Tablet - take 1 tablet by ORAL route every 12 hours; 14 tablet. - Medication Reconciliation, Local Pharmacy Hours form. - Follow up: [facility]; When: Call to arrange an appointment; Reason: Continuance of care. - Problem is an ongoing problem. - Symptoms are unchanged. - Notes: The push pin has advanced to the lower left colon and should likely be passed with the next bowel movement. You may see blood streaking which is to be expected and not a need for emergent attention. You are encouraged to drink copious amounts of fluids. HPI: 20:17 This 20 yrs old Female presents to ER via Walkin/Carried/Asstd with pc complaints of Vomiting. 20:17 The history is obtained from the patient, the patient's spouse. She has had abdominal pc pain for 5-6 days, with ED visits for the same, all investigation normal. She reportedly swallowed a tack early today, for which she was seen here and confirmed by Xray to be in the transverse colon and no perforation noted on CT. She was discharged just 2 hours ago and returns saying her pain increased and she vomited without blood noted. She did not take any Zofran as prescribed a few days ago. She is laughing as I enter her room for the interview. Historical: - Allergies: no known allergies; - Home Meds: 1. BCP Oral 1 tab nightly 2. Prozac 40 mg Oral cap 1 cap once daily 3. symbicort 2 puffs twice daily 4. Zofran ODT 4mg - PMHx: Anxiety; Asthma; Depression; - PSHx: none; - The history from nurses notes was reviewed: and I agree with what is documented. - Social history: Smoking status: Patient states was never smoker of tobacco. No barriers to communication noted, The patient speaks fluent Macanese, Speaks appropriately for age, Preferred Language: Macanese. - Family history: Not pertinent. - : The pt / caregiver states he / she is not on anticoagulants. Home medication list is obtained from the patient. - Hospitalizations: : No recent hospitalization is reported. - Exposure Risk Screening:: None identified. - Immunization history:: All immunizations up-to-date. - Social history:: the patient is a non-smoker, the patient does not drink alcohol. ROS: 20:23 All systems are negative except as listed. pc Exam: 20:23 General Appearance: no acute distress, alert. pc 20:23 Respiratory: no respiratory distress, normal breath sounds. 20:23 CVS: regular pulse rate, regular rhythm, normal S1 and S2, no murmurs, strong peripheral pulses. 20:23 Abdomen: soft, non-tender, no organomegaly, normal bowel sounds. Vital Signs: 18:25 BP 120 / 71; Pulse 87; Resp 16; Temp 99.6(O); Pulse Ox 97% ; Weight 77.11 kg / 170 lbs elp (R); Height 5 ft. 5 in. (165.10 cm) (R); Pain 5/10; 21:42 BP 114 / 52; Pulse 74; Resp 18; Temp 98.0(O); Pulse Ox 100% on R/A; Pain 7/10; tm5 18:25 Body Mass Index 28.29 (77.11 kg, 165.10 cm) elp MDM: 20:19 Abdomen, Flat\E\Upright,PA Chest Ordered. EDMS 20:23 Differential Diagnosis: episode of pain and vomiting resolved, with known colonic FB. pc Plan: xray, advice. 21:07 Data reviewed: old medical records, vital signs, nurses notes, all radiology studies pc and available results. Test interpretation: X-RAY - interpreted by me, 3-view abdomen series; metallic FB now in distal left colon, moved form transverse colon on prior films earlier today, without free air. The patient has been re-examined and re-evaluated. The patient's symptoms have mildly improved after treatment. Disposition: The historical points, examination findings, and any diagnostic results supporting the provided diagnosis, were discussed with the patient or legal guardian. The need for outpatient follow up with the provider listed on their discharge instructions was discussed. They were encouraged to return to [facility], or the nearest ED, if symptoms worsen/persist, or for any other questions/concerns. 21:12 HYDROcodone-acetaminophen 4 pack- 5 mg-325 mg 1 packets PO Per package directions; pc Dispense with patient. 1 po q4h prn for pain ordered. 22:09 [facility] Payment Agreement was scanned into [employer] and attached to record. zo 22: Financial registration complete. zo Administered Medications: 21:41 Drug: HYDROcodone-acetaminophen 4 pack- 1 packets [hydrocodone 5 mg-acetaminophen 325 tm5 mg tablet (1 tabs)] {Co-Signature: [email or web address] (Trinh Maya RN).} Route: PO; 21:42 Follow up: Response: Med's dispensed home tm5 Signatures: Dispatcher [employer] EDMS Blair Laguerre MD MD pc Olin, Zoeann zo Sherrill, Hannah, RN RN hs1 Jaimie Moreno RN RN tm5 Trinh Maya RN af2 The chart was reviewed and I authenticate all verbal orders and agree with the evaluation and treatment provided.Attachments: 22:09 [facility] Payment Agreement zo Chart Complete MTDD
== END 2016-04-27 21:44 | disposition home or self-care (01) ==
LOC: M ED 18:24
DX: T18.4XXD Foreign body in colon, subsequent encounter (principal); X58.XXXA Exposure to other specified factors, initial encounter; Y92.89 Other specified places as the place of occurrence of the external cause; Y93.89 Activity, other specified; Y99.8 Other external cause status; Z79.3 Long term (current) use of hormonal contraceptives; F41.9 Anxiety disorder, unspecified; J45.909 Unspecified asthma, uncomplicated; F32.9 Major depressive disorder, single episode, unspecified; Z79.899 Other long term (current) drug therapy